=== PATIENT | female | born 1965 | race Asian ===

== ENCOUNTER 2024-10-22 22:20 | Emergency (ER) | payer OTHER, SELFPAY ==
[2024-10-22 22:22] VITALS: BP 142/90
--- NOTE | 2024-10-23 00:31 | ED.GENMED ---
History of Present Illness
<GILSON Montiel - Last Filed: 10/23/24 01:06>
General
Chief Complaint: Abdominal Pain
Source: patient and family
Time Seen by Provider: 10/23/24 00:08
Nursing documentation reviewed up to this point in time: agreed with
History of Present Illness
History of Present Illness:
Pt is a 59 yo F with a history of a cholecystectomy who presents to the ED via EMS with abdominal pain. Pt states that the pain began around 6pm and it is located in the epigastric region. Pt states that the pain is non-radiating and describes it as
a 'knot' and sharp. Pt states that the pain has been intermittent since onset. Pt states at home when EMS was called, the pain was the most severe it has been and 10/10 on the pain scale. Family states that the patient couldn't walk due to the pain.
Pt states that now she is feeling better. Pt denies N/V/D, fever, chills, headache, changes in urination.
In 2021 patient had an upper endoscopic US which found minimal inflammation of the common bile duct. Pt states that since then, she has not had any abdominal pain.
Past History
<GILSON Montiel - Last Filed: 10/23/24 01:06>
Past History
ED Past Medical History: None
Social History
Tobacco: Non-smoker
Review of Systems
<GILSON Montiel - Last Filed: 10/23/24 01:06>
Review of Systems
Allergies reviewed?: Yes
Constitutional: Reports no symptoms
Respiratory: Reports no symptoms
Cardiac: Reports no symptoms
ABD/GI: Reports abdominal pain
: Reports no symptoms
Neurological: Reports no symptoms
Phy Exam
<GILSON Montiel - Last Filed: 10/23/24 01:06>
General Physical Exam
General Presentation: well appearing and no apparent distress
General age: appears stated age
General Skin: warm
General Habitus: normal
General Mental: alert
General Hydration: appears well hydrated
Cardiovascular Exam
Cardiovascular Exam: regular rate/rhythm
Pulmonary Exam
Pulmonary Exam: lungs clear
Gastrointestinal Exam
Gastrointestinal Exam: normal bowel sounds, non tender and soft
Palpation: generalized: No tenderness (in epigastric region)
Course
<GILSON Montiel - Last Filed: 10/23/24 01:06>
Orders/Labs/Results
Orders:
Orders
10/22/24 22:25
Electrocardiogram (*1) Urgent
Reason for Study: Abdominal Pain
IV Insert/Care/Rem.- Treatment PRN
Complete Blood Count/With Diff Urgent
Comprehensive Metabolic Panel Urgent
Lipase Urgent
10/22/24 22:26
EKG- Treatment ONCE
10/23/24 00:35
Urinalysis Reflex To Culture Urgent
Date Specimen was Collected: 10/23/24
Time Specimen was Collected: 00:33
Urine Microscopic Reflex Cult Urgent
Urine Culture Urgent
EMORY Source: U
Specimen Description:
Date Specimen was Collected: 10/23/24
Time Specimen was Collected: 00:33
10/23/24 02:16
US Abdomen Complete/Upper Urgent
Comment:
Reason For Exam: acute upper abd pain, elevated LFT's.
Abnormal Lab Results
10/23/24 10/23/24
00:28 00:35
MPV 10.5 H fL
(7.4-10.4)
Glucose 111 H mg/dl
(70-99)
AST 90 H U/L
(14-36)
ALT 60 H U/L
(0-35)
Ur Occult Blood Reflex Trace A
(Negative)
Leukocyte Esterase Rfl 2+ A
(Negative)
Urine RBC 3-6 A /HPF
(0-2)
Urine Bacteria (Reflex) Moderate A
(Negative)
10/23/24 00:28
10/23/24 00:28
Vital Signs
Initial and Last Documented VS:
Initial Vital Signs
Temp Pulse Resp BP Pulse Ox
98.5 F 75 18 142/90 98
10/22/24 22:22 10/22/24 22:22 10/22/24 22:22 10/22/24 22:22 10/22/24 22:22
Last Documented Vital Signs
Temp Pulse Resp BP Pulse Ox
98.5 F 75 18 142/90 98
10/22/24 22:22 10/22/24 22:22 10/22/24 22:22 10/22/24 22:22 10/22/24 22:22
<Catherine Montiel, DO - Last Filed: 10/23/24 03:24>
Orders/Labs/Results
Orders:
Orders
10/22/24 22:25
Electrocardiogram (*1) Urgent
Reason for Study: Abdominal Pain
IV Insert/Care/Rem.- Treatment PRN
Complete Blood Count/With Diff Urgent
Comprehensive Metabolic Panel Urgent
Lipase Urgent
10/22/24 22:26
EKG- Treatment ONCE
10/23/24 00:35
Urinalysis Reflex To Culture Urgent
Date Specimen was Collected: 10/23/24
Time Specimen was Collected: 00:33
Urine Microscopic Reflex Cult Urgent
Urine Culture Urgent
EMORY Source: U
Specimen Description:
Date Specimen was Collected: 10/23/24
Time Specimen was Collected: 00:33
10/23/24 02:16
US Abdomen Complete/Upper Urgent
Comment:
Reason For Exam: acute upper abd pain, elevated LFT's.
Abnormal Lab Results
10/23/24 10/23/24
00:28 00:35
MPV 10.5 H fL
(7.4-10.4)
Glucose 111 H mg/dl
(70-99)
AST 90 H U/L
(14-36)
ALT 60 H U/L
(0-35)
Ur Occult Blood Reflex Trace A
(Negative)
Leukocyte Esterase Rfl 2+ A
(Negative)
Urine RBC 3-6 A /HPF
(0-2)
Urine Bacteria (Reflex) Moderate A
(Negative)
10/23/24 00:28
10/23/24 00:28
Vital Signs
Initial and Last Documented VS:
Initial Vital Signs
Temp Pulse Resp BP Pulse Ox
98.5 F 75 18 142/90 98
10/22/24 22:22 10/22/24 22:22 10/22/24 22:22 10/22/24 22:22 10/22/24 22:22
Last Documented Vital Signs
Temp Pulse Resp BP Pulse Ox
98.5 F 75 18 142/90 98
10/22/24 22:22 10/22/24 22:22 10/22/24 22:22 10/22/24 22:22 10/22/24 22:22
<GILSON Montiel - Last Filed: 10/23/24 01:06>
MDM/Problems Addressed
Differential Diagnosis Includes:
Acute pancreatitis, SBO, GERD
<GILSON Montiel - Last Filed: 10/23/24 01:06>
*Critical Care Note
Total Time (30-74mins, 75-104mins- exclusive of procedures): Not Applicable
<Catherine Montiel DO - Last Filed: 10/23/24 03:24>
*Radiology
Radiology exam reviewed: radiology read reviewed
*Pulse Oximetry
Patient hypoxic: no
*EKG
Interpreted by ED Provider?: Yes
Interpretation: normal
Comparison EKG: no changes (Unchanged from previous November 2021)
Rate: normal
Rhythm: sinus
[place]: normal axis
Interval: normal interval
QRS Pattern: normal QRS
Ischemia: no ischemia
ED Attending Note
<ST TianaPA - Last Filed: 10/23/24 01:06>
-
Portions of this chart may have been created with voice recognition software.� Occasional wrong word or��sound alike� substitutions may have occurred due to the inherent limitations of voice recognition software.
<Catherine Montiel DO - Last Filed: 10/23/24 03:24>
ED Attending Note
Patient seen and examined by attending physician: Yes
I performed the substantive portion of visit, reviewed & personally made and approve the management plan that is documented in note by myself or EVANGELISTA.: Yes
ED Attending Note:
This is a 59-year-old woman with history of cholecystectomy 9 years ago and was hospitalized here November 2021 after suffering an episode of acute cholangitis. At that time she presented with 4 to 5-day history of upper abdominal pain associated
with nausea, vomiting and brief diarrhea at onset of symptoms. She was found to have significantly elevated LFTs, mildly dilated common bile duct on ultrasound and MRCP showed mildly dilated proximal common bile duct but no definitive filling
defect, concerning for cholangitis. Treated with IV antibiotics, transition to oral antibiotics and followed up with GI as an outpatient with reported normalization of LFTs.
She has been feeling well since then without recurrent episodes but tonight shortly after dinner she developed abrupt onset of generalized upper abdominal pain, severe in nature causing her to double over. She did pass a bowel movement at home and
shortly after passing this bowel movement pain has improved and has since resolved. She has had no associated nausea nor vomiting. No chest pain, no back pain, no dizziness or lightheadedness.
Prior to tonight she has been feeling well.
GENERAL: 59-year-old woman appears her stated age, bright and alert, pleasant, appears in no acute distress. and daughter accompanying.
EYE: pupils equal and reactive. anicteric
NECK: Supple, nontender, no meningismus, no significant adenopathy.
ENT: posterior pharynx is clear, oral mucosa is moist. No rhinorrhea.
CARDIAC: Regular rate and rhythm. no murmur.
LUNGS: Clear breath sounds bilaterally, no acute respiratory distress, no wheezes/rales/rhonchi
ABDOMEN: Soft, nondistended, without focal tenderness, no r/g, no cvat. Mildly hyperactive bowel sounds.
NEUROLOGICAL: Alert and oriented x3, no focal neuro deficits. Gait is haider and steady.
SKIN: Warm and dry, normal color, skin intact. No rash.
MUSCULOSKELETAL: No C/C/E. peripheral pulses are full and equal b/l. No palpable tenderness.
PSYCH: Normal and appropriate interaction.
Concern for recurrent biliary colic/common bile duct stone, cholangitis, pancreatitis, gastritis, small bowel obstruction. ACS is considered but less likely.
Currently symptom-free and comfortable. Abdomen is soft without appreciable tenderness.
EKG is unremarkable, within normal limits, unchanged from previous November 2021.
Labs are pending.
Will continue to observe.
Will consider imaging depending on lab results and clinical course.
03:20
Labs show minimally elevated AST and ALT however similar to January 2022.
CBC is unremarkable. Urinalysis shows moderate bacteria, 6-10 WBCs. 3-5 squamous epithelial cells. Patient has had no UTI symptoms, no flank pain. She remains afebrile.
Abdominal ultrasound shows no acute findings. There is note of extrahepatic ductal dilatation with CBD measuring up to 11 mm but overall similar and unchanged from previous MRCP. No ductal stones visualized.
Patient remains comfortable, pain-free.
She has had no diarrhea nor recurrent bowel movement since arrival to the ED.
Tolerating oral fluids without difficulty.
At this point unclear as to cause for abdominal pain. She may have had an element of irritable bowel, spastic colon which improved after passing a bowel movement at home.
Will discharge to home with recommendations to maintain a bland diet over the next 24 hours.
As she has had no UTI symptoms, I suspect asymptomatic bacteriuria and will hold off on antibiotic, await urine culture.
Recommend prompt follow-up with PCP for recheck.
Discharge Plan
Departure
Patient Disposition: Home (Routine Discharge)
Date of Disposition: 10/23/24
Time of Disposition: 03:23
Patient with high blood pressure during this ER visit?: No
Condition: Good
Discharge Problem:
Acute upper abdominal pain
Instructions: Abdominal Pain
Prescriptions:
No Action
fluticasone propionate [Flovent HFA] 1 PUFF HFA aerosol inhaler
2 puff inhalation R BID Qty: 1 0RF
pantoprazole 40 MG tablet,delayed release (DR/EC)
40 mg PO DAILY Qty: 30 0RF
levofloxacin 750 MG tablet
750 mg PO DAILY 3 Days Qty: 3 0RF
metronidazole 500 MG tablet
500 mg PO Q8 3 Days Qty: 9 0RF
oxycodone 5 MG tablet
5 mg PO Q4HPRN PRN (Reason: pain) Qty: 5 0RF
meclizine 12.5 MG tablet
12.5 mg PO PRN (Reason: dizziness)
Referrals:
Eulalia Benjamin MD [Family Provider] - Call in 1-3 days for appt
Interventions
Interventions:
*Risk Screen - Suicide Last Done: 10/23/24 02:14
*General Assessment Last Done: 10/23/24 02:14
*Neglect/Abuse Screening Last Done: 10/23/24 02:14
ED- Fall Risk Assessment Last Done: 10/23/24 02:14
*ED COVID-19 Vaccine History Last Done: 10/22/24 22:25
WP-Npxflz-Ttyefqjozl Assessment Last Done: 10/23/24 02:14
Discharge Date and Time
Print Language: BARBADIAN
[2024-10-23 00:50] LABS: % Basophils 0.4 % (0-2); % Eosinophils 1.3 % (0-6); % Immature Granulocytes 0.2 % (0-0.5); % Lymphocytes 23.3 % (20.5-51.1); % Monocytes 5.6 % (1.7-9.3); % Neutrophils 69.2 % (42.2-75.2); Absolute Eosinophils 0.1 10^3/uL (0-0.7); Absolute Monocytes 0.5 10^3/uL (0.1-0.6); Absolute Neutrophils 5.9 10^3/uL (1.4-6.5); Hematocrit 38.6 % (37.0-47.0); Hemoglobin 12.9 g/dL (12.0-16.0); Mean Corp Hgb Conc. 33.4 g/dL (33.0-37.0); Mean Corpuscular Hgb 29.7 pg (27.0-31.0); Mean Corpuscular Volume 88.7 fL (81.0-99.0); Mean Platelet Volume 10.5 fL (7.4-10.4); Nucleated Red Blood Cells % 0 %; Platelet Count 302 10^3/uL (130-400); Red Blood Cell Count 4.35 10^6/uL (4.20-5.40); Red Cell Dist. Width 13.6 % (11.5-14.5); White Blood Cell Count 8.5 10^3/uL (4.8-10.8)
[2024-10-23 00:59] LABS: Urine Albumin Negative (Neg - Trace); Urine Bilirubin Negative (Negative); Urine Character Clear (Clear); Urine Color Yellow; Urine Glucose Negative (Negative); Urine Ketone Negative (Negative); Urine Leukocyte 2+ (Negative); Urine Nitrite Negative (Negative); Urine Occult Blood Trace (Negative); Urine Urobilinogen Negative (Neg - 1+); Urine pH 6.5 (5.0-9.0)
[2024-10-23 01:04] LABS: ALT (SGPT) 60 U/L (0-35); AST (SGOT) 90 U/L (14-36); Albumin 4.3 g/dl (3.5-5.0); Alkaline Phosphatase 85 U/L (38-126); Blood Urea Nitrogen 15 mg/dl (7-17); Calcium 8.8 mg/dl (8.4-10.2); Carbon Dioxide 27 mmol/L (22-30); Chloride 104 mmol/L (98-107); Glucose 111 mg/dl (70-99); Lipase 80 U/L (23-300); Potassium 4.5 mmol/L (3.5-5.1); Sodium 139 mmol/L (135-145); Total Bilirubin 0.3 mg/dl (0.2-1.3); Total Protein 7.2 g/dl (6.3-8.2); eGFR > 60.00
[2024-10-23 01:42] LABS: Urine Bacteria Moderate (Negative)
[2024-10-23 04:13] VITALS: BP 143/78
== END 2024-10-23 04:14 | disposition home or self-care (01) ==
LOC: EMR 22:20
PROVIDERS: Emergency Medicine; EMERGENCY PHYSICIAN Emergency Medicine; FAMILY PHYSICIAN Emergency Medicine
DX: R10.11 Right upper quadrant pain (principal)
CPT/HCPCS: 99284; 76700; 80053; 81003; 81015; 83690; 85025; 87086; 93005

== ENCOUNTER → 2024-12-26 15:25 | Outpatient (REF) | payer OTHER, SELFPAY ==
[2024-12-26 16:44] LABS: ALT (SGPT) 27 U/L (0-35); AST (SGOT) 29 U/L (14-36); Albumin 4.1 g/dl (3.5-5.0); Alkaline Phosphatase 72 U/L (38-126); Blood Urea Nitrogen 14 mg/dl (7-17); Carbon Dioxide 30 mmol/L (22-30); Chloride 102 mmol/L (98-107); Glucose 111 mg/dl (70-99); Potassium 4.1 mmol/L (3.5-5.1); Sodium 138 mmol/L (135-145); Total Bilirubin 0.4 mg/dl (0.2-1.3); Total Protein 7.2 g/dl (6.3-8.2); eGFR > 60.00
== END ==
LOC: REG 15:25
PROVIDERS: ATTENDING PHYSICIAN Family Medicine
DX: Z09 Encounter for follow-up examination after completed treatment for conditions other than malignant neoplasm (principal)
CPT/HCPCS: 36415; 80053

== ENCOUNTER → 2025-02-15 07:07 | Outpatient (REF) | payer OTHER, SELFPAY ==
[2025-02-15 10:18] LABS: Glycohemoglobin (HgbA1c) 5.9 % (4.0-5.6)
== END ==
LOC: REG 07:07
PROVIDERS: ATTENDING PHYSICIAN Emergency Medicine
DX: R73.9 Hyperglycemia, unspecified (principal)
CPT/HCPCS: 36415; 83036

== ENCOUNTER 2025-03-07 12:35 | Inpatient (IN) | payer OTHER, SELFPAY ==
[2025-03-07] VITALS (13 sets, daily range): BP systolic 90–148; BP diastolic 42–70; BMI 21.5
[2025-03-07] MEDS: TYLENOL 650 MG PO (10:18)
[2025-03-07] MEDS: ZOFRAN 4 MG IV (10:18)
[2025-03-07] MEDS: PROTONIX IV 40 MG IV (10:18)
--- NOTE | 2025-03-07 10:19 | ED.GENMED ---
History of Present Illness
General
Chief Complaint: Fever
Source: patient
Exam Limitations: none
Time Seen by Provider: 03/07/25 09:40
Nursing documentation reviewed up to this point in time: agreed with
History of Present Illness
History of Present Illness:
Patient with history of cholecystectomy 20 years ago, presents to ED secondary to sudden onset of upper abdominal pain, shortly after having dinner, consisting of steamed fish along with vegetables. Abdominal pain described as sharp, with radiation
to the back, without any alleviating or exacerbate factors. Denies fever or chills. Denies diarrhea. Denies trauma. Denies recent illness. Denies recent change in medications or diet. Denies sick contact. Patient states that she had similar
symptoms when she had her gallbladder removed.
Past History
Past History
ED Past Medical History: None
Social History
Tobacco: Non-smoker
Review of Systems
Review of Systems
Allergies reviewed?: Yes
All Other Systems: ROS reviewed and negative except as documented in HPI and ROS
Constitutional: Reports no symptoms
Respiratory: Reports no symptoms
Cardiac: Reports no symptoms
ABD/GI: Reports abdominal pain, nausea and vomiting; Denies diarrhea
Musculoskeletal: Reports no symptoms
Skin: Reports no symptoms
Neurological: Reports no symptoms
Phy Exam
Physical Exam
Physical Exam:
Physical Exam
General: mild painful distress, acutely ill. febrile.
Head: nc/at. eomi
Neck: supple. normal range of motion.
Heart: tachycardic. no murmuc
Lungs: no acute respiratory distress.
Abdomen: normal bowel sounds. moderate RUQ tenderness to palpation. no distention
Neuro: alert and oriented x 3. no focal neurological deficits
Skin: no rash
Psychiatric: well kept. interactive and cooperative
Extremities: no edema. no calf tenderness.
Sepsis
Sepsis Screening
Sepsis Assessment: Sepsis
Sepsis Screen
Sepsis Screen: Sepsis
Date: 03/08/25
Time: 12:15
Course
Orders/Labs/Results
Orders:
Orders
03/07/25 Breakfast
NPO
Allow oral meds: Yes
Allow clear liquids: No
03/07/25 10:07
HYDROmorphone [Dilaudid] 0.5 mg IV NOW STA
Ondansetron Injectable [Zofran] 4 mg IV NOW STA
Pantoprazole [Protonix IV] 40 mg IV NOW STA
03/07/25 10:08
0.9% Sodium Chloride 500 ml [Nss] 500 ml IV BOLUS
Acetaminophen [Tylenol] 650 mg PO NOW STA
US Abdomen Complete/Upper Urgent
Comment:
Reason For Exam: RUQ/epigastric pain
03/07/25 10:14
COVID-19 Antigen Urgent
Source: Nasal Swab
Complete Blood Count/With Diff Urgent
Comprehensive Metabolic Panel Urgent
Direct Bilirubin Urgent
Comment: ADD ON
Hepatitis C Antibody Routine
Comment: ADD ON
Lactic Acid Q4H
Comment: CANCEL 2nd LACTIC ACID IF 1st LACTIC ACID IS LESS THAN 2
Lipase Urgent
Magnesium Urgent
Influenza A+B Rapid Molecular Urgent
EMORY Source: Nasal Swab
Specimen Description:
03/07/25 11:19
Urinalysis Reflex To Culture Urgent
Date Specimen was Collected: 03/07/25
Time Specimen was Collected: 10:13
Urine Microscopic Reflex Cult Urgent
03/07/25 11:33
Piperacillin/Tazo 3.375 Gram [Zosyn] 3.375 gram in 50 ml IV NOW
03/07/25 11:47
Blood Culture Q30M
EMORY Source: Blood/Venous
Specimen Description:
Blood Culture Q30M
EMORY Source: Blood/Venous
Specimen Description:
03/07/25 12:01
MR Abdomen W/o & W Contrast Urgent
Comment: Please include MRCP images
Reason For Exam: abd pain with abnormal LFTs
Recent pill cam endoscopy?: No
03/07/25 12:22
Admit/Transfer Patient As Directed
Co-Sign Provider:
Level of Care: Inpatient admission
Assign to:: Telemetry
Physician / Group: jean paul
Diagnosis: choledocholithiasis
Reason for Telemetry: Other
Other Reason for Telemetry: sepsis
Date to Stop Telemetry: 03/09/25
Time to Stop Telemetry: 11:00
Reason for Hospitalization: sepsis
Expected length of stay greater than two midnights?: Yes
ELOS- Estimated Length of Stay in days: 3
I certify the patient meets the requirements for IP care: Yes
03/07/25 12:23
PRN Pain Medication Management As Directed
May give lesser potent ordered pain med per pt: Yes
preference::
Protocol:: Medication orders for pain may be administered in a
manner that supports deferring to patient preference
when the pt is:
- Requesting an ordered lesser potent pain medication.
Least to most potent pain medications are defined
as: acetaminophen < NSAID < tramadol < opioids
(morphine, oxycodone, hydromorphone).
- Requesting a lesser dose of the same medication IF
ORDERED.
- Requesting a less intrusive route of administration
if both routes are prescribed by the provider (PO <
IV).
03/07/25 12:24
Code Status As Directed
Resuscitation Status: Full Code
03/07/25 13:48
0.9% Sodium Chloride 1000 ml [Nss] 1,000 ml IV 125 mls/hr
Bisacodyl [Dulcolax] 10 mg RECTAL [id number] PRN
Docusate W/Senna [Senokot-S] 1 tablet PO BIDPRN PRN
Ibuprofen [Motrin] 400 mg PO Q6HPRN PRN
Polyethylene Glycol Powder [Miralax] 17 grams PO DAILYPRN PRN
03/07/25 13:48
GASTROINTESTINAL CONSULT Routine
Consulting Provider: Nikos Ortiz
Was physician already notified: Yes
Activity As Directed
Activity Level: As Tolerated
Vital Signs As Directed
Frequency: Per unit guidelines
DX Deep Vein Thrombosis Video Routine
03/07/25 14:30
HYDROmorphone [Dilaudid] 0.5 mg IV Q4HPRN PRN
03/07/25 16:30
Ondansetron Injectable [Zofran] 4 mg IV Q6HPRN PRN
03/07/25 18:00
Enoxaparin Sodium [Lovenox] 40 mg SC QPM
Piperacillin/Tazo 3.375 Gram [Zosyn] 3.375 gram in 50 ml IV Q6H
03/08/25 05:37
Complete Blood Count/No Diff IN AM
LFT [Nfyjy-Klei-Gcogvdj] IN AM
03/08/25 08:00
Pantoprazole [Protonix] 40 mg PO DAILY
03/09/25 06:00
Complete Blood Count/No Diff IN AM
LFT [Avpcd-Zqyt-Mxejgtc] IN AM
03/09/25 11:00
DC Protocol for Telemetry ONCE
03/10/25 06:00
Complete Blood Count/No Diff IN AM
LFT [Szjih-Nemf-Cfhswhb] IN AM
Abnormal Lab Results
03/07/25 03/07/25
10:14 11:19
WBC 15.6 H 10^3/uL
(4.8-10.8)
MPV 10.6 H fL
(7.4-10.4)
Abs Immat Gran (auto) 0.1 H 10^3/uL
(0-0.05)
Absolute Neuts (auto) 14.6 H 10^3/uL
(1.4-6.5)
Absolute Lymphs (auto) 0.4 L 10^3/uL
(1.2-3.4)
Neutrophils % 93.5 H %
(42.2-75.2)
Lymphocytes % 2.6 L %
(20.5-51.1)
Glucose 131 H mg/dl
(70-99)
Total Bilirubin 2.6 H mg/dl
(0.2-1.3)
Direct Bilirubin 1.7 H mg/dl
(0.0-0.4)
AST 1007 H* U/L
(14-36)
ALT 602 H* U/L
(0-35)
Urine Ketones 1+ A
(Negative)
Ur Occult Blood Reflex 2+ A
(Negative)
Urine RBC 7-10 A /HPF
(0-2)
Urine Bacteria (Reflex) Few A
(Negative)
Urine Albumin (Reflex) 1+ A
(Neg - Trace)
03/07/25 10:14
03/07/25 10:14
Vital Signs
Initial and Last Documented VS:
Initial Vital Signs
Temp Pulse Resp BP Pulse Ox
101.2 F H 118 18 148/70 95
03/07/25 07:33 03/07/25 07:33 03/07/25 07:33 03/07/25 07:33 03/07/25 07:33
Last Documented Vital Signs
Temp Pulse Resp BP Pulse Ox
98.2 F 71 18 117/51 99
03/08/25 11:32 03/08/25 11:32 03/08/25 11:32 03/08/25 11:32 03/08/25 11:32
MDM/Problems Addressed
MDM/Problems Addressed:
History and exam concerning for choledocholithiasis vs cholangitis. Will admit for further evaluation and treatment, including abx and MRCP.
director call center sales GI physician, Dr. Ortiz, notified via [employer]
*Critical Care Note
Total Time (30-74mins, 75-104mins- exclusive of procedures): Not Applicable
ED Attending Note
-
Portions of this chart may have been created with voice recognition software.� Occasional wrong word or��sound alike� substitutions may have occurred due to the inherent limitations of voice recognition software.
Discharge Plan
Departure
Patient Disposition: Admit
Date of Disposition: 03/07/25
Time of Disposition: 11:44
Admit to: Telemetry
Presentation/result/management discussed w/ accepting MD/DO: Hospitalist
Discharge Problem:
Fever, Abdominal pain
Interventions
Interventions:
*Risk Screen - Suicide Last Done: 03/07/25 07:33
*General Assessment Last Done: 03/07/25 07:33
*Neglect/Abuse Screening Last Done: 03/07/25 10:26
*ED- Fall Risk Assessment Last Done: 03/07/25 10:26
*ED COVID-19 Vaccine History Last Done: 03/07/25 07:33
*Nursing Disposition Last Done: 03/07/25 13:20
ED- Neurological Assessment Last Done: 03/07/25 10:26
ED-Skin Assessment Last Done: 03/07/25 10:26
Discharge Date and Time
Discharge Date/Time: 03/07/25 13:36
[2025-03-07] MEDS: DILAUDID 0.5 MG IV (10:20)
[2025-03-07] MEDS: NSS 500 IV (10:22)
[2025-03-07 10:29] LABS: Hematocrit 40.2 % (37.0-47.0); Mean Corp Hgb Conc. 34.8 g/dL (33.0-37.0); Mean Corpuscular Hgb 30.3 pg (27.0-31.0); Mean Platelet Volume 10.6 fL (7.4-10.4); Platelet Count 245 10^3/uL (130-400); Red Blood Cell Count 4.62 10^6/uL (4.20-5.40); Red Cell Dist. Width 13.6 % (11.5-14.5); White Blood Cell Count 15.6 10^3/uL (4.8-10.8)
[2025-03-07 10:36] LABS: Lactic Acid 1.6 mmol/L (0.7-2.0)
[2025-03-07 10:46] LABS: ALT (SGPT) 602 U/L (0-35); Albumin 4.3 g/dl (3.5-5.0); Alkaline Phosphatase 112 U/L (38-126); Blood Urea Nitrogen 10 mg/dl (7-17); COVID-19 Antigen Negative (Negative); Calcium 9.3 mg/dl (8.4-10.2); Carbon Dioxide 26 mmol/L (22-30); Chloride 104 mmol/L (98-107); Estimated Creatinine Clearance 60 ml/min; Glucose 131 mg/dl (70-99); Lipase 76 U/L (23-300); Magnesium 1.6 mg/dl (1.6-2.3); Potassium 3.8 mmol/L (3.5-5.1); Sodium 138 mmol/L (135-145); Total Bilirubin 2.6 mg/dl (0.2-1.3); Total Protein 7.6 g/dl (6.3-8.2); eGFR > 60.00
[2025-03-07 11:03] LABS: AST (SGOT) 1007 U/L (14-36)
[2025-03-07 11:17] LABS: % Basophils 0.3 % (0-2); % Immature Granulocytes 0.5 % (0-0.5); % Lymphocytes 2.6 % (20.5-51.1); % Monocytes 3.1 % (1.7-9.3); % Neutrophils 93.5 % (42.2-75.2); Absolute Immature Granulocytes 0.1 10^3/uL (0-0.05); Absolute Lymphocytes 0.4 10^3/uL (1.2-3.4); Absolute Monocytes 0.5 10^3/uL (0.1-0.6); Absolute Neutrophils 14.6 10^3/uL (1.4-6.5); Nucleated Red Blood Cells % 0 %
[2025-03-07] MEDS: ZOSYN 50 IV ×3 (11:49→23:56)
--- NOTE | 2025-03-07 12:08 | HPS.HSE ---
Family Physician
-
Family Physician: Eulalia Benjamin MD
Chief Complaint
-
abdominal pain
History of Present Illness
Patient with history of cholecystectomy 20 years ago, GERD presents to ED secondary to sudden onset of upper abdominal pain, shortly after having dinner, consisting of steamed fish along with vegetables. Abdominal pain described as sharp, with
radiation to the right sided back. patient had multiple episodes of vomiting since last night.denied fever, chills,chest pain, sob. stated AUGUST and dizzy.denied syncope. denied dysuria or hematuria.
concern for choledocholithiasis vs cholangitis. patient received fluids, Zosyn, fluids, Dilaudid, Tylenol and Zofran and Protonix in Er. admitting for further management.
Medical History
Past Medical History
Past Medical History: Reports Other
Additional Past Medical History:
vertigo
right middle lobe nodule
GERD
Past Surgical History: Reports Other
Additional Past Surgical History:
cholecystectomy
Social History
Tobacco: Non-smoker
Alcohol: None
Drug: None
Personal:
Living: With Family
Family History
Family History: Not pertinent
Allergies / Home Medications
Allergies reflects when Allergies were last updated in [employer].
Home Medications with original date entered in [employer]
Allergy/Medication List:
Allergies
Allergy/AdvReac Type Severity Reaction Status Date / Time
sunlight Allergy Hives Uncoded 03/07/25 07:37
Home Medications
meclizine 12.5 mg tablet 12.5 mg PO DAILYPRN PRN dizziness 11/24/21
Flovent Hfa 2 puff inhalation R BIDPRN PRN sob 03/07/25
acetaminophen 325 mg tablet (Tylenol) 650 mg PO Q6HPRN PRN mild pain 03/07/25
pantoprazole 40 mg tablet,delayed release 40 mg PO DAILY 03/07/25
Review of Systems
-
Constitutional: Reports No Symptoms
EENT: Reports No Symptoms
Respiratory: Reports No Symptoms
Cardiac: Reports No Symptoms
Abdomen/GI: Reports Abdominal Pain, Nausea and Vomiting
: Reports No Symptoms
Musculoskeletal: Reports No Symptoms
Skin: Reports No Symptoms
Neurological: Reports Dizzy and Headache
Endocrine: Reports No Symptoms
Hematologic/Lymphatic: Reports No Symptoms
Psych: Reports No Symptoms
Physical Exam
Vital Signs
Vital Signs
Temp Pulse Resp BP Pulse Ox
99.4 F 101 21 143/69 97
03/07/25 11:21 03/07/25 11:30 03/07/25 11:30 03/07/25 11:18 03/07/25 11:30
Physical Exam
General: Well Developed, Well Nourished and No Apparent Distress
HEENT: NormoCephalic, Moist mucous membranes and Atraumatic
Respiratory: Clear
Cardiac: S1/S2 and Regular Rhythm; No Murmur or Rub
GI: Soft, Non Distended, Normal Bowel Sounds and Tender; No Organomegaly
Rectal: Deferred by Provider
Musculoskeletal: No Clubbing, No Cyanosis and No Edema
Skin: No Rash
Neuro: AO x 3 and Nonfocal/grossly intact
Psych: Calm
Laboratory Results
-
03/07/25 10:14
03/07/25 10:14
Laboratory Results
Lactic Acid Cancelled 03/07/25 14:15
Total Bilirubin 2.6 mg/dl (0.2-1.3) H 03/07/25 10:14
AST 1007 U/L (14-36) H* 03/07/25 10:14
ALT 602 U/L (0-35) H* 03/07/25 10:14
Alkaline Phosphatase 112 U/L (38-126) 03/07/25 10:14
Lipase 76 U/L (23-300) 03/07/25 10:14
Data Reviewed
-
Ultrasound: Report Reviewed by me
Lab Data: Labs Reviewed by me
Impression/Plan
-
#fever/right upper quadrant pain/elevated LFTS
#sepsis as evident by tachycardia, fever and elevated wbcs.
-MRCP
-GI consulted
-keep patient NPO
-fluids continued for hydration
-iv zosyn continued
-wbc 15.6,AT 1001, ALT 602
-US of abdomen with the impression of Mildly prominent common bile duct although smaller in caliber in comparison to prior ultrasound. No findings to suggest intrahepatic biliary tract dilatation.
-blood culture sent from ER
-COVID and flu negative
#DVT prophylaxis
-Lovenox
#CODE status
-full code
[2025-03-07 12:14] LABS: Urine Albumin 1+ (Neg - Trace); Urine Bilirubin Negative (Negative); Urine Character Clear (Clear); Urine Color Yellow; Urine Glucose Negative (Negative); Urine Ketone 1+ (Negative); Urine Leukocyte Negative (Negative); Urine Nitrite Negative (Negative); Urine Occult Blood 2+ (Negative); Urine Urobilinogen Negative (Neg - 1+)
[2025-03-07 12:31] LABS: Urine Bacteria Few (Negative); Urine White Cell 0-2 /HPF (0-5)
--- NOTE | 2025-03-07 12:44 | CON.GI ---
Addendum entered and electronically signed by Nikos Ortiz MD 03/07/25 16:49:
I saw and examined the patient.
The LABORER YARD or PA's note was reviewed and I agree with the note.
Comment:
This patient is a 60-year-old woman with a history of a cholecystectomy 10 years ago. She started having episodes of abdominal pain dating back to 2021. She has had imaging and procedures showing beading of her intrahepatic bile ducts and
narrowing of her common bile duct. At the time was thought to be related to possible COVID cholangiopathy. She did have imaging to follow that up at the time. Since then she was relatively stable until October 2024 when she had abdominal pain
again she did have an ultrasound and was told to get a MRI which was scheduled for April. She did come to the hospital with fever and abdominal pain. She does have mildly elevated transaminases and an elevated white count.
abd: soft, mildly tender
impression:
abnormal biliary tract
possible cholangitis
abnl lfts
plan:
antibiotics
npo
MRI/MRCP
will likely need eus +/- ercp
trend lfts and wbc
blood cultures
Original Note:
Consultation
-
Date/Time Consultation Requested: 1200 03/07/25
Date/Time Consultation Performed: 1245 03/07/25
Requesting Provider: Yifan Mcfarlane MD
Performing Provider: MAGGIE English, Nikos Ortiz MD
Reason for Consultation: increased LFT's
Medical History
Chief Complaint / HPI
History of Present Illness:
Pt is a 60yo with hx prior bárbara 10 years ago at [facility], migraines with hx prior bouts of abdominal pain. She related first episode was in 2021. She was seen at and had recent COVID. On admission noted with increased LFT's US with mild duct
dilation and MRI with Moderate diffuse intrahepatic bile duct dilation.but questionable slight beading of the intrahepatic bile ducts and Focal narrowing of the common bile duct as it extends inferiorly within the pancreas, with suggestion of 2
focal areas of narrowing. The regions of narrowing appear to be due to wall thickening and/or extrinsic compression rather than due to a calculus. No convincing evidence for an associated mass lesion/neoplasm. Findings are felt to most likely be due
to cholangitis with resultant bile duct narrowing and dilation. With recent diagnosis of COVID-19, COVID-19 cholangiopathy is a consideration. There is no convincing evidence for a mass associated with this region of bile duct narrowing. However, a
primary bile duct carcinoma must be considered as a differential consideration. She proceed for EUS with irregularity and inflamed CBD - with concern for covid, vs passed stone vs early neoplasm. She completed repeat MRI several months later with
persistent intra and extrahepatic biliary ductal dilatation, with slight improvement. The common hepatic and proximal intrahepatic ducts remain mildly dilated, the proximal common bile duct measures 8 mm, previously measured 12 mm.There is a
persistent change in caliber similar to the previous exam, with a more normal caliber distal common bile duct measuring 4 mm and tapering normally. A discrete lesion within the duct or extrinsic lesion is not definitively identified. No other
significant interval change.The fact that there is improvement in the dilatation of the common bile duct suggests that the findings were most likely due to cholangitis, with improving symptoms and appearance of the bile ducts compared to the
previous exam. Pt was recommended to repeat MRI in 6 months to evaluate for stability but not completed. She then returned in 10/2024 with recurrent pain and similar ductal dilation and minimal LFT elevation with AST 90, ALT 60 and normal
lipase. She now returns for again recurrent abdominal pain with fever. On admission bili 2.6, AST 1007, ALT 602, and alk phos 112 with lipase 76, WBC 15,600 and fever 101.2 on admission.
At this time pt admits to episode usually occurring after eating. She admits to nausea and vomiting non bloody emesis and severe pain with episodes. She otherwise denies dysphagia, GERD, diarrhea, constipation, or change in stool or urine
color. No NSAID or Anticoagulation use.
Past Medical History
Past Medical History: Other (headaches, RML nodule )
Past Surgical History: Cholecystectomy
Social History
Tobacco: Non-Smoker
Alcohol: None
Drug: None
Personal:
Living: With Family
Employment: Employed
Family History
Family History: Other (no family hx GI malignancies )
Allergies / Home Medications
Allergy/AdvReac Type Severity Reaction Status Date / Time
sunlight Allergy Hives Uncoded 03/07/25 07:37
�Medication �Instructions �Recorded
meclizine 12.5 mg tablet 12.5 mg PO DAILYPRN PRN dizziness 11/24/21
Flovent Hfa 2 puff inhalation R BIDPRN PRN sob 03/07/25
acetaminophen 325 mg tablet 650 mg PO Q6HPRN PRN mild pain 03/07/25
(Tylenol)
pantoprazole 40 mg tablet,delayed 40 mg PO DAILY 03/07/25
release
Review of Systems
-
History Source: Patient and Family
Constitutional: Reports Fever
EENT: Reports No Symptoms
Respiratory: Reports No Symptoms
Cardiac: Reports No Symptoms
Abdomen/GI: Reports Abdominal Pain, Nausea and Vomiting
: Reports No Symptoms
Musculoskeletal: Reports No Symptoms
Skin: Reports No Symptoms
Neurological: Reports Dizzy and Weakness
Endocrine: Reports No Symptoms
Hematologic/Lymphatic: Reports No Symptoms
Vital Signs
Temp Pulse Resp BP Pulse Ox
99.4 F 101 21 143/69 97
03/07/25 11:21 03/07/25 11:30 03/07/25 11:30 03/07/25 11:18 03/07/25 11:30
Physical Exam
Exam
General: Well Developed, Well Nourished and Other (sedated in ER)
HEENT: Normocephalic and Other (? minimal jaundice )
Respiratory: Clear
Cardiac: Other (tachy )
GI: Soft, Non Distended and Tender (mild epigastric pain)
Musculoskeletal: No Clubbing and No Cyanosis
Skin: Warm and Dry
Neuro: Other (sleepy with sedation but answers some questions )
Psych: Calm
Results
WBC 15.6 10^3/uL (4.8-10.8) H 03/07/25 10:14
Hgb 14.0 g/dL (12.0-16.0) 03/07/25 10:14
Hct 40.2 % (37.0-47.0) 03/07/25 10:14
MCV 87.0 fL (81.0-99.0) 03/07/25 10:14
Plt Count 245 10^3/uL (130-400) 03/07/25 10:14
Absolute Neuts (auto) 14.6 10^3/uL (1.4-6.5) H 03/07/25 10:14
Sodium 138 mmol/L (135-145) 03/07/25 10:14
Potassium 3.8 mmol/L (3.5-5.1) 03/07/25 10:14
Chloride 104 mmol/L (98-107) 03/07/25 10:14
Carbon Dioxide 26 mmol/L (22-30) 03/07/25 10:14
BUN 10 mg/dl (7-17) 03/07/25 10:14
Creatinine 0.7 mg/dL (0.6-1.0) 03/07/25 10:14
Calcium 9.3 mg/dl (8.4-10.2) 03/07/25 10:14
Total Bilirubin 2.6 mg/dl (0.2-1.3) H 03/07/25 10:14
AST 1007 U/L (14-36) H* 03/07/25 10:14
ALT 602 U/L (0-35) H* 03/07/25 10:14
Alkaline Phosphatase 112 U/L (38-126) 03/07/25 10:14
Lipase 76 U/L (23-300) 03/07/25 10:14
Diagnostic Image Results:
11/2021 US Abdomen Complete/Upper
Mild dilation of the extrahepatic bile ducts, which is commonly seen status post cholecystectomy. Correlation with laboratory values is recommended. An MRCP could be performed if there is clinical concern for choledocholithiasis.
11/19/21 MR Abdomen W/o & W Contrast
IMPRESSION: Status post cholecystectomy.
Moderate diffuse intrahepatic bile duct dilation. MRCP images somewhat limited by motion, but questionable slight beading of the intrahepatic bile ducts.
Focal narrowing of the common bile duct as it extends inferiorly within the pancreas, with suggestion of 2 focal areas of narrowing. The regions of narrowing appear to be due to wall thickening and/or extrinsic compression rather than due to a
calculus. No convincing evidence for an associated mass lesion/neoplasm.
Findings are felt to most likely be due to cholangitis with resultant bile duct narrowing and dilation. With recent diagnosis of COVID-19, COVID-19 cholangiopathy is a consideration. There is no convincing evidence for a mass associated with this
region of bile duct narrowing. However, a primary bile duct carcinoma must be considered as a differential consideration.
No convincing evidence for common bile duct calculus.
Small cyst within the anterior left lobe of the liver.
02/23/22 MR Abdomen W/o & W Contrast
There is persistent intra and extrahepatic biliary ductal dilatation, with slight improvement. The common hepatic and proximal intrahepatic ducts remain mildly dilated, the proximal common bile duct measures 8 mm, previously measured 12 mm.
There is a persistent change in caliber similar to the previous exam, with a more normal caliber distal common bile duct measuring 4 mm and tapering normally. A discrete lesion within the duct or extrinsic lesion is not definitively identified.
No other significant interval change.
The fact that there is improvement in the dilatation of the common bile duct suggests that the findings were most likely due to cholangitis, with improving symptoms and appearance of the bile ducts compared to the previous exam.
Consider repeat MRI of the abdomen in 6-9 months to evaluate for stability.
10/2024 US abdomen
1. Mild diffusely increased echogenicity throughout the liver suggesting mild diffuse liver disease.
2. Extrahepatic biliary dilatation (common bile duct 1.2 cm diameter) which appears unchanged.
3. Previous cholecystectomy.
03/07/25 US abdomen
IMPRESSION: Prior cholecystectomy.
Mildly prominent common bile duct although smaller in caliber in comparison to prior ultrasound. No findings to suggest intrahepatic biliary tract dilatation.
Otherwise, unremarkable abdominal ultrasound.
Prior GI Procedures:
EUS 11/2021 abnormal MRI [place]
Impression: - Irregularity and minimally inflamed CBD [place]
corresponding to the MRI of unclear etiology. DDX is
resolving mild CBD inflammation due to COVID19 vs
passed calculus vs. early neoplasm
reccommended repeat MRI
EGD: none per chart
Colonoscopy: none per chart
Assessment / Plan
-
Pt is a 60yo with hx prior bárbara 10 years ago at [facility], migraines with hx prior bouts of abdominal pain. She related first episode was in 2021. She was seen at and had recent COVID. On admission noted with increased LFT's US with mild duct
dilation and MRI with Moderate diffuse intrahepatic bile duct dilation.but questionable slight beading of the intrahepatic bile ducts and Focal narrowing of the common bile duct as it extends inferiorly within the pancreas, with suggestion of 2
focal areas of narrowing. She proceed for EUS with irregularity and inflamed CBD - with concern for covid, vs passed stone vs early neoplasm. She completed repeat MRI several months later with persistent intra and extrahepatic biliary ductal
dilatation, with slight improvement. The common hepatic and proximal intrahepatic ducts remain mildly dilated, the proximal common bile duct measures 8 mm, previously measured 12 mm.There is a persistent change in caliber similar to the previous
exam, with a more normal caliber distal common bile duct measuring 4 mm and tapering normally. A discrete lesion within the duct or extrinsic lesion is not definitively identified. No other significant interval change.The fact that there is
improvement in the dilatation of the common bile duct suggests that the findings were most likely due to cholangitis, with improving symptoms and appearance of the bile ducts compared to the previous exam. Pt was recommended to repeat MRI in 6
months to evaluate for stability but not completed. She then returned in 10/2024 with recurrent pain and similar ductal dilation and minimal LFT elevation with AST 90, ALT 60 and normal lipase. She now returns for again recurrent abdominal pain
with fever. On admission bili 2.6, AST 1007, ALT 602, and alk phos 112 with lipase 76, WBC 15,600 and fever 101.2 on admission.
-recurrent bouts of abdominal pain with rise in LFT's
-fever/leukocytosis concern for sepsis with tachycardia and mild hypotension on admission
-prior abnormal MRI with slight beading of the intrahepatic bile ducts and Focal narrowing of the common bile duct with follow up EUS completed in 2021-- covid vs passed stone vs early mass vs other
-hx prior bárbara
-dizziness
other med problems:
-migraines
-hx lung nodule
PLAN:
etiology of symptoms with concern for cholangitis- CBD stone vs stricture with prior beaded CBD vs mass vs other
plan for MRI with MRCP
trend labs
NPO
abx
blood cx pending
family updated
-
-
Thank you for consultation and allowing me to participate in the patient's care. Please call the software configuration analyst GI physician during the after hours with any questions or concerns.
--- NOTE | 2025-03-07 12:44 | W.PN.UPDATE ---
Update Note
Progress Note Update
This is an addendum to the H&P written by Suzi Haynes on 03/07/2025.� Patient seen and examined independently with IMAGE CONSULTANT.
60-year-old female past medical history of cholecystectomy 20 years ago, presenting with upper abdominal pain with radiation to the back with vomiting.� No fevers or chills.�
Vital signs normal apart from tachycardia.
Labs show leukocytosis and elevated LFTs with AST of thousand, ALT of 600.� Abdominal ultrasound shows mildly prominent common bile duct although smaller than prior ultrasound.� No intrahepatic biliary tract dilatation.� Lipase 76.
Patient with likely acute choledocholithiasis.� NPO, IV fluids, Zosyn, MRCP, GI consulted.
[2025-03-07] MEDS: NSS 1000 IV (14:09)
[2025-03-07 17:29] LABS: Direct Bilirubin 1.7 mg/dl (0.0-0.4)
[2025-03-07] MEDS: LOVENOX 40 MG SC (17:41)
[2025-03-07 19:24] LABS: Hepatitis C Antibody Negative (Negative)
[2025-03-07] MEDS: MOTRIN 400 MG PO (20:47)
[2025-03-07] MEDS: NSS 250 IV ×2 (23:20→23:56)
[2025-03-08] VITALS (9 sets, daily range): BP systolic 91–146; BP diastolic 41–73
[2025-03-08] MEDS: ProAmatine 5 MG PO (00:50)
--- NOTE | 2025-03-08 01:07 | PTCARENOTE ---
Addendum entered by Lennie Gtz RN 03/08/25 02:09:
@ 0150 SBP remained in the 90s. provider notified. no new orders at this time.
Original Note:
Late note due to patient care- Please see EMR for specific values and times:
@ 2300 pt was found to have a low Bp (90s/40s)Pt denied c/o dizziness or pain. Assessment unchanged from beginning of shift. Provider was made aware. Order for increase in cont IVF and 250 bolus was placed and completed.
@2345 after completion of bolus, SBP remained in the 90s. VS include a rectal temp which was afeb. Provider notified. 250 ml bolus ordered and completed.
@0030 after completion of bolus, SBP remained in the 90s. Provider notified. Order for PO midodrine placed and completed.
[2025-03-08] MEDS: NSS 1000 IV ×3 (02:52→17:24)
[2025-03-08] MEDS: ZOSYN 50 IV ×3 (06:02→17:22)
[2025-03-08 06:28] LABS: Hematocrit 33.9 % (37.0-47.0); Hemoglobin 11.7 g/dL (12.0-16.0); Mean Corp Hgb Conc. 34.5 g/dL (33.0-37.0); Mean Corpuscular Volume 89.7 fL (81.0-99.0); Mean Platelet Volume 11.6 fL (7.4-10.4); Platelet Count 207 10^3/uL (130-400); Red Blood Cell Count 3.78 10^6/uL (4.20-5.40); Red Cell Dist. Width 14.3 % (11.5-14.5); White Blood Cell Count 13.2 10^3/uL (4.8-10.8)
[2025-03-08 06:35] LABS: INR 1.32; PT 16.9 Sec (11.4-14.6)
[2025-03-08 06:58] LABS: ALT (SGPT) 417 U/L (0-35); AST (SGOT) 347 U/L (14-36); Albumin 3.3 g/dl (3.5-5.0); Alkaline Phosphatase 102 U/L (38-126); Direct Bilirubin 2.2 mg/dl (0.0-0.4); Total Bilirubin 2.8 mg/dl (0.2-1.3)
[2025-03-08] MEDS: PROTONIX 40 MG PO (08:40)
--- NOTE | 2025-03-08 11:45 | CM ---
Spoke with patient's spouse to obtain information for assessment as patient was asleep. Patient's spouse stated that patient lives with her and their daughter in a duplex with a flight of steps to enter. Patient has been independent with ADLs,
personal care, dressing and bathing. 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 She drives and can get herself to all of her appointments and does all of her own shopping. She has no DME. She has never had VN or been to a SNF.
Patient has a prescription plan and uses, [facility] in [place] for all of her medications.
Her PCP is, Eulalia Benjamin.
Patient's spouse stated that patient should be able to return home when medically cleared for discharge.
Case management will continue to follow and assist with discharge planning. Will watch for any needs.
--- NOTE | 2025-03-08 15:21 | W.PN.GI.CBS2 ---
Addendum entered and electronically signed by Bette Harris DO 03/08/25 17:34:
Patient seen and examined independently of MAGGIE. I agree with her note with my additions below
Nichelle is a 60-year-old female with history of cholecystectomy over a decade ago, intermittent migraines comes in with recurrent epigastric abdominal pain that radiates into her back with hepatocellular injury, elevated total bilirubin of 2.8
with normal alkaline phosphatase and normal lipase. She has had 2 episodes in 2024 and prior to that 2 in 2021. She states symptoms start with bloating then escalate to pressure that is constant and severe in the epigastric area that radiates into
the back along with nausea menstrual having vomiting last night with chills and a measured fever this morning of 101.2. Blood cultures were sent and are negative. Initially ultrasound was done showing mildly prominent common bile duct but no
intrahepatic ductal dilatation. This was followed by MRI showing mild prominence of the proximal and mid common bile duct with thickening of the distal common bile duct measuring 9.4 cm with some mild enhancement. Gallbladder is absent, pancreas
is unremarkable with a normal pancreatic duct and a normal spleen.
Currently patient denies any significant nausea vomiting or pain and is hungry and wants to eat. She denies any family history of liver disease, no known autoimmune disease and only takes biotin outpatient. Recently told she was prediabetic.She is
a non-smoker and does not drink alcohol. Her who is at bedside has been with her through each of these episodes.
# Nausea vomiting abdominal pain with abnormal liver chemistries with hepatocellular injury and mildly elevated total bilirubin with normal alkaline phosphatase
-- Patient is currently relatively asymptomatic
-- Review of MRI shows mild enhancement in the distal common bile duct that is mildly distended
--My hypothesis: Her mildly dilated common bile duct from prior cholecystectomy leaves her at risk for biliary sludge/small stones which then has difficulty getting out of the ampulla causing a obstructive like clinical picture
--Will start a diet and advance as tolerated, monitor labs including liver enzymes daily, if no improvement EUS early next week
Original Note:
Today's Communication / Plan
-
as per plan
Assessment / Plan
-
Pt is a 60yo with hx prior bárbara 10 years ago at [place], migraines with hx prior bouts of abdominal pain. She related first episode was in 2021. She was seen at and had recent COVID. On admission noted with increased LFT's US with mild duct
dilation and MRI with Moderate diffuse intrahepatic bile duct dilation.but questionable slight beading of the intrahepatic bile ducts and Focal narrowing of the common bile duct as it extends inferiorly within the pancreas, with suggestion of 2
focal areas of narrowing. She proceed for EUS with irregularity and inflamed CBD - with concern for covid, vs passed stone vs early neoplasm. She completed repeat MRI several months later with persistent intra and extrahepatic biliary ductal
dilatation, with slight improvement. The common hepatic and proximal intrahepatic ducts remain mildly dilated, the proximal common bile duct measures 8 mm, previously measured 12 mm.There is a persistent change in caliber similar to the previous
exam, with a more normal caliber distal common bile duct measuring 4 mm and tapering normally. A discrete lesion within the duct or extrinsic lesion is not definitively identified. No other significant interval change.The fact that there is
improvement in the dilatation of the common bile duct suggests that the findings were most likely due to cholangitis, with improving symptoms and appearance of the bile ducts compared to the previous exam. Pt was recommended to repeat MRI in 6
months to evaluate for stability but not completed. She then returned in 10/2024 with recurrent pain and similar ductal dilation and minimal LFT elevation with AST 90, ALT 60 and normal lipase. She now returns for again recurrent abdominal pain
with fever. On admission 03/07/25-> bili 2.6, AST 1007, ALT 602, and alk phos 112 with lipase 76, WBC 15,600 and fever 101.2 on admission. Labs 03/08/25-> WBC 13.2, hemoglobin 11.7, platelets 207, PT 16.9, INR 1.32, total bilirubin 2.8, direct
bilirubin 2.2, AST 347, ALT 417, alk phos 102, now afebrile. Negative blood cultures x 24 hours. Negative flu. Negative COVID. Negative hepatitis C antibody. Tested for hepatitis A and was immune in 2021.
Impression:
-recurrent bouts of abdominal pain with rise in LFT's,
-fever/leukocytosis concern for sepsis with tachycardia and mild hypotension on admission
-prior abnormal MRI with slight beading of the intrahepatic bile ducts and Focal narrowing of the common bile duct with follow up EUS completed in 2021-- covid vs passed stone vs early mass vs other
-hx prior bárbara
-dizziness
other med problems:
-migraines
-hx lung nodule
Plan:
-Continue Abx
-Trend LFTs
-Trend CBC, PT/INR
-Will review MRI with Dr. Morales, patient will likely require EUS +/- ERCP, vs Spy Glass
-Continue IVF
Subjective
Subjective
Date of Service: March 08, 2025
Patient without any further episodes of nausea, vomiting or abdominal discomfort. Tolerating ice chips. Patient has been maintained n.p.o. Continues on Zosyn. Has remained afebrile since 03/07/2025. She continues on normal saline at 125 cc an
hour. WBC currently 13.2 down from 15.6, hemoglobin 11.7, platelets 207, INR 1.32, total bilirubin 2.8 up from 2.6, direct bilirubin 0.2 up from 1.7, AST 347 down from 1007, ALT 417 down from 602, alk phos 102 down from 112, albumin 3.3. MRI of
the abdomen with without contrast performed that shows liver normal morphology. No significant difference of hepatic signal intensity between in and out phase images. Scattered subcentimeter hyperintensity, likely cysts. There is mild prominence
of the intrahepatic and extrahepatic bile ducts. The CBD measures 9.4 cm. The distal CBD is nondistended unchanged from prior. There is no evidence of filling defect. The common bile duct wall appears mildly thickened and enhancing. The
gallbladder surgically absent. The pancreas is unremarkable. Normal caliber pancreatic duct.
Objective
Data Reviewed
Laboratory Data:
Laboratory Results
03/08/25 05:37
03/07/25 10:14
Laboratory Results
PT 16.9 Sec (11.4-14.6) H 03/08/25 05:37
INR 1.32 03/08/25 05:37
Magnesium 1.6 mg/dl (1.6-2.3) 03/07/25 10:14
Total Bilirubin 2.8 mg/dl (0.2-1.3) H 03/08/25 05:37
AST 347 U/L (14-36) H 03/08/25 05:37
ALT 417 U/L (0-35) H 03/08/25 05:37
Alkaline Phosphatase 102 U/L (38-126) 03/08/25 05:37
Lipase 76 U/L (23-300) 03/07/25 10:14
Vital Signs and I&O:
Vital Signs
Temp Pulse Resp BP Pulse Ox
98.2 F 71 18 117/51 99
03/08/25 11:32 03/08/25 11:32 03/08/25 11:32 03/08/25 11:32 03/08/25 11:32
I&O
03/07/25 03/08/25 03/09/25
06:59 06:59 06:59
Intake Total 1919
Balance 1919
Physical Exam
Physical Exam
HEENT: Anicteric
Cardiology: Normal Sinus Rhythm
Pulmonary: Clear
GI: Soft, Non Distended, Non Tender and Normal Bowel Sounds
Extremities: No Edema
Neuro: Non Focal
--- NOTE | 2025-03-08 16:03 | W.PN.HOSP.TC ---
Today's Communication/Plan
-
advance diet when cleared by GI
reviewed with in room
Assessment / Plan
Assessment / Plan
#fever/right upper quadrant pain/elevated LFTS
#sepsis as evident by tachycardia, fever and elevated wbcs.
-MRCP: There is mild prominence of the proximal/mid common bile duct, slightly decreased in size from prior and without evidence of choledocholithiasis. Findings may related to prior cholecystectomy. The common bile duct wall appears mildly
thickened and enhancing which can be seen with cholangitis.
-GI consulted
-keep patient NPO
-fluids continued for hydration
-iv zosyn continued
-wbc 15.6-->13.2
AST 1007-->347
ALT 602-->417
-US of abdomen with the impression of Mildly prominent common bile duct although smaller in caliber in comparison to prior ultrasound. No findings to suggest intrahepatic biliary tract dilatation.
-blood culture sent from ER
-COVID and flu negative
discussed with GI, await decision on plans
#DVT prophylaxis
-Lovenox
#CODE status
-full code
Anticipated Discharge: > 48 hours
Subjective/Interval History
-
Date of Service: March 08, 2025
No abd pain currently
Objective Data
-
Labs:
Laboratory Results
03/08/25
05:37
WBC 13.2 H
Hgb 11.7 L
Hct 33.9 L
Plt Count 207
PT 16.9 H
INR 1.32
Total Bilirubin 2.8 H
AST 347 H
ALT 417 H
Alkaline Phosphatase 102
Vital Signs:
Vital Signs
Temp Pulse Resp BP Pulse Ox
98.2 F 74 18 124/69 100
03/08/25 15:49 03/08/25 15:49 03/08/25 15:49 03/08/25 15:49 03/08/25 15:49
I&O
03/07/25 03/08/25 03/09/25
06:59 06:59 06:59
Intake Total 1919
Balance 1919
Review of Systems
-
History Source: Patient and Family ( at bedside)
Constitutional: Denies Fever
EENT: Reports No Symptoms Reported
Respiratory: Reports No Symptoms
Cardiac: Reports No Symptoms
Abdomen/GI: Denies Abdominal Pain (resolved)
Genitourinary: Reports No Symptoms
Musculoskeletal: Reports No Symptoms
Neuro: Reports No Symptoms
Physical Exam
-
General: Well Developed, Well Nourished and No Apparent Distress
HEENT: Normocephalic, Atraumatic and Moist Mucous Membranes
Respiratory: Clear to Auscultation; Negative Wheezes, Rales or Rhonchi
Cardiac: Regular Rhythm and S1/S2
GI: Soft, Nontender and Nondistended
Musculoskeletal: No Clubbing, No Cyanosis and No Edema
Psych: Calm
[2025-03-08] MEDS: LOVENOX 40 MG SC (17:22)
[2025-03-09] VITALS (7 sets, daily range): BP systolic 130–161; BP diastolic 66–85
[2025-03-09] MEDS: ZOSYN 50 IV ×4 (00:12→17:03)
[2025-03-09] MEDS: ANTIVERT 12.5 MG PO (00:35)
[2025-03-09 05:44] LABS: Hematocrit 34.4 % (37.0-47.0); Hemoglobin 11.8 g/dL (12.0-16.0); Mean Corp Hgb Conc. 34.3 g/dL (33.0-37.0); Mean Corpuscular Hgb 30.3 pg (27.0-31.0); Mean Corpuscular Volume 88.4 fL (81.0-99.0); Mean Platelet Volume 11.2 fL (7.4-10.4); Platelet Count 201 10^3/uL (130-400); Red Blood Cell Count 3.89 10^6/uL (4.20-5.40); Red Cell Dist. Width 14.7 % (11.5-14.5)
[2025-03-09 05:59] LABS: INR 1.07; PT 14.2 Sec (11.4-14.6)
[2025-03-09 06:18] LABS: ALT (SGPT) 265 U/L (0-35); AST (SGOT) 159 U/L (14-36); Albumin 2.9 g/dl (3.5-5.0); Alkaline Phosphatase 110 U/L (38-126); Direct Bilirubin 0.8 mg/dl (0.0-0.4); Total Bilirubin 1.1 mg/dl (0.2-1.3); Total Protein 5.5 g/dl (6.3-8.2)
[2025-03-09] MEDS: PROTONIX 40 MG PO (09:08)
--- NOTE | 2025-03-09 10:28 | W.PN.GI.CBS2 ---
Today's Communication / Plan
-
-- check stool WBC, low lactose diet
-- potential discharge tomorrow with Dr. Morales follow up
- discussed with and RN
Assessment / Plan
-
Nichelle is a 60-year-old female with history of cholecystectomy over a decade ago, intermittent migraines comes in with recurrent epigastric abdominal pain that radiates into her back with hepatocellular injury, elevated total bilirubin of 2.8
with normal alkaline phosphatase and normal lipase. She has had 2 episodes in 2024 and prior to that 2 in 2021. She states symptoms start with bloating then escalate to pressure that is constant and severe in the epigastric area that radiates into
the back along with nausea menstrual having vomiting last night with chills and a measured fever this morning of 101.2. Blood cultures were sent and are negative. Initially ultrasound was done showing mildly prominent common bile duct but no
intrahepatic ductal dilatation. This was followed by MRI showing mild prominence of the proximal and mid common bile duct with thickening of the distal common bile duct measuring 9.4 cm with some mild enhancement. Gallbladder is absent, pancreas
is unremarkable with a normal pancreatic duct and a normal spleen.
She denies any family history of liver disease, no known autoimmune disease and only takes biotin outpatient. Recently told she was prediabetic.She is a non-smoker and does not drink alcohol. Her who is at bedside has been with her
through each of these episodes.
Impression:
-recurrent bouts of abdominal pain with rise in LFT's,
-fever/leukocytosis concern for sepsis with tachycardia and mild hypotension on admission
-prior abnormal MRI with slight beading of the intrahepatic bile ducts and Focal narrowing of the common bile duct with follow up EUS completed in 2021-- covid vs passed stone vs early mass vs other
-hx prior bárbara
-dizziness
other med problems:
-migraines
-hx lung nodule
# Nausea vomiting abdominal pain with abnormal liver chemistries with hepatocellular injury and mildly elevated total bilirubin with normal alkaline phosphatase
-- much improved LFTs and resolved fever and leukocytosis. no further abdominal pain
-- Patient is currently relatively asymptomatic except for bloating and some loose stools
-- Review of MRI shows mild enhancement in the distal common bile duct that is mildly distended
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
of oddi dysfunction
--Will start a diet and advance as tolerated, monitor labs including liver enzymes daily, if no improvement EUS early next week
-- if does well over the next 12 hrs would need a follow up with Dr. Morales to discuss options
#diarrhea - x4 - only one large one - not watery
-- check for WBC
-- potentially antibiotic induced
-- if becomes recurrent will check cdiff
check CMP tomorrow
Subjective
Subjective
Date of Service: March 09, 2025
Complains of some mild bloating but no significant abdominal pain. No fevers. States she did have 4 loose stools this morning first and was large followed by 3 smaller ones. No blood
Objective
Data Reviewed
Laboratory Data:
Laboratory Results
03/09/25 04:51
03/07/25 10:14
Laboratory Results
PT 14.2 Sec (11.4-14.6) 03/09/25 04:51
INR 1.07 03/09/25 04:51
Magnesium 1.6 mg/dl (1.6-2.3) 03/07/25 10:14
Total Bilirubin 1.1 mg/dl (0.2-1.3) D 03/09/25 04:51
AST 159 U/L (14-36) H 03/09/25 04:51
ALT 265 U/L (0-35) H 03/09/25 04:51
Alkaline Phosphatase 110 U/L (38-126) 03/09/25 04:51
Lipase 76 U/L (23-300) 03/07/25 10:14
Vital Signs and I&O:
Vital Signs
Temp Pulse Resp BP Pulse Ox
98.9 F 69 16 141/73 99
03/09/25 07:40 03/09/25 07:40 03/09/25 07:40 03/09/25 07:40 03/09/25 07:40
I&O
03/08/25 03/09/25 03/10/25
06:59 06:59 06:59
Intake Total 1919 900 / 900
Balance 1919 900 / 900
Physical Exam
Physical Exam
HEENT: Anicteric
Cardiology: Normal Sinus Rhythm
Pulmonary: Clear
GI: Soft, Non Distended and Non Tender
Extremities: No Edema
Neuro: Non Focal
[2025-03-09] MEDS: FLUSH (NSS) 2 FLUSH IV ×2 (12:50→17:02)
[2025-03-09] MEDS: DILAUDID 0.5 MG IV ×3 (13:38→22:44)
--- NOTE | 2025-03-09 13:41 | PTCARENOTE ---
patient had 75% of an omelette, 1 piece of toast and cranberry juice for lunch- within the hour patient reporting severe abdomen pain, throughout abdomen and radiating to back , moaning at at times. denies nausea- requesting pain medication.
dilaudid 0.5 mg IV given as ordered. plan of care on going.
--- NOTE | 2025-03-09 14:46 | W.PN.HOSP.TC ---
Today's Communication/Plan
-
follow with diet advanced
Assessment / Plan
Assessment / Plan
#fever/right upper quadrant pain/elevated LFTS
#sepsis as evident by tachycardia, fever and elevated wbcs.
-MRCP: There is mild prominence of the proximal/mid common bile duct, slightly decreased in size from prior and without evidence of choledocholithiasis. Findings may related to prior cholecystectomy. The common bile duct wall appears mildly
thickened and enhancing which can be seen with cholangitis.
-GI consulted, discussed with Dr. Harris, ?sphincter of Oddi dysfunction
-tolerating low lactose diet
-stop fluids
-iv zosyn continued
-wbc 15.6-->13.2-->7.0
AST 1007-->347-->159
ALT 602-->417-->265
-US of abdomen with the impression of Mildly prominent common bile duct although smaller in caliber in comparison to prior ultrasound. No findings to suggest intrahepatic biliary tract dilatation.
-blood culture sent from ER-NGTD
Stool neg for WBC
-COVID and flu negative
discussed with GI, if continues to do well, potential dc tomorrow to follow up with Jamie Morales post dc, consider EUS if starts to worsen
#DVT prophylaxis
-Lovenox
#CODE status
-full code
Anticipated Discharge: 24 - 48 hours
Subjective/Interval History
-
Date of Service: March 09, 2025
Feeling better, good appetite
Objective Data
-
Labs:
Laboratory Results
03/09/25
04:51
WBC 7.0
Hgb 11.8 L
Hct 34.4 L
Plt Count 201
PT 14.2
INR 1.07
Total Bilirubin 1.1 D
AST 159 H
ALT 265 H
Alkaline Phosphatase 110
Vital Signs:
Vital Signs
Temp Pulse Resp BP Pulse Ox
98.5 F 70 16 159/85 99
03/09/25 11:14 03/09/25 11:14 03/09/25 11:14 03/09/25 11:14 03/09/25 11:14
I&O
03/08/25 03/09/25 03/10/25
06:59 06:59 06:59
Intake Total 1919 900 / 900
Balance 1919 900 / 900
Review of Systems
-
History Source: Patient and Family ( at bedside)
Constitutional: Denies Fever
EENT: Reports No Symptoms Reported
Respiratory: Reports No Symptoms
Cardiac: Reports No Symptoms
Abdomen/GI: Denies Abdominal Pain (resolved)
Genitourinary: Reports No Symptoms
Musculoskeletal: Reports No Symptoms
Neuro: Reports No Symptoms
Physical Exam
-
General: Well Developed, Well Nourished and No Apparent Distress
HEENT: Normocephalic, Atraumatic and Moist Mucous Membranes
Respiratory: Clear to Auscultation; Negative Wheezes, Rales or Rhonchi
Cardiac: Regular Rhythm and S1/S2
GI: Soft, Nontender and Nondistended
Musculoskeletal: No Clubbing, No Cyanosis and No Edema
Psych: Calm
[2025-03-09] MEDS: NSS IV (15:17)
[2025-03-09] MEDS: TORADOL 15 MG IV (17:01)
[2025-03-09] MEDS: LOVENOX 40 MG SC (17:03)
--- NOTE | 2025-03-09 17:07 | PTCARENOTE ---
relief of abd pain, but returned after 3 hours post dilaudid- Dr Kern and Dr Harris aware, orders received for tordol and dilaudid- both given as ordered. plan of care on going.
[2025-03-10] VITALS (7 sets, daily range): BP systolic 145–175; BP diastolic 69–85
[2025-03-10] MEDS: ZOSYN 50 IV ×5 (00:02→23:38)
[2025-03-10 06:18] LABS: INR 1.05
[2025-03-10 07:02] LABS: ALT (SGPT) 251 U/L (0-35); AST (SGOT) 150 U/L (14-36); Albumin 3.7 g/dl (3.5-5.0); Alkaline Phosphatase 159 U/L (38-126); Blood Urea Nitrogen 6 mg/dl (7-17); Calcium 8.2 mg/dl (8.4-10.2); Carbon Dioxide 24 mmol/L (22-30); Chloride 109 mmol/L (98-107); Direct Bilirubin 1.7 mg/dl (0.0-0.4); Estimated Creatinine Clearance 60 ml/min; Glucose 87 mg/dl (70-99); Potassium 3.3 mmol/L (3.5-5.1); Sodium 144 mmol/L (135-145); Total Bilirubin 2.1 mg/dl (0.2-1.3); Total Protein 6.5 g/dl (6.3-8.2); eGFR > 60.00
[2025-03-10 07:06] LABS: Hematocrit 35.3 % (37.0-47.0); Hemoglobin 12.6 g/dL (12.0-16.0); Mean Corp Hgb Conc. 35.7 g/dL (33.0-37.0); Mean Corpuscular Hgb 30.4 pg (27.0-31.0); Mean Corpuscular Volume 85.1 fL (81.0-99.0); Mean Platelet Volume 11.8 fL (7.4-10.4); Platelet Count 230 10^3/uL (130-400); Red Blood Cell Count 4.15 10^6/uL (4.20-5.40); Red Cell Dist. Width 14.2 % (11.5-14.5); White Blood Cell Count 5.2 10^3/uL (4.8-10.8)
[2025-03-10] MEDS: PROTONIX 40 MG PO (08:12)
--- NOTE | 2025-03-10 11:06 | W.PN.GI.CBS2 ---
Today's Communication / Plan
-
NPo after midnight for EUS/ERCP scheduled for tomorrow
Primary team to replete potassium
Hold Christine hilton
Assessment / Plan
-
iNchelle is a 60-year-old female with history of cholecystectomy over a decade ago, intermittent migraines comes in with recurrent epigastric abdominal pain that radiates into her back with hepatocellular injury, elevated total bilirubin of 2.8
with normal alkaline phosphatase and normal lipase. She has had 2 episodes in 2024 and prior to that 2 in 2021. She states symptoms start with bloating then escalate to pressure that is constant and severe in the epigastric area that radiates into
the back along with nausea menstrual having vomiting last night with chills and a measured fever this morning of 101.2. Blood cultures were sent and are negative. Initially ultrasound was done showing mildly prominent common bile duct but no
intrahepatic ductal dilatation. This was followed by MRI showing mild prominence of the proximal and mid common bile duct with thickening of the distal common bile duct measuring 9.4 cm with some mild enhancement. Gallbladder is absent, pancreas
is unremarkable with a normal pancreatic duct and a normal spleen.
She denies any family history of liver disease, no known autoimmune disease and only takes biotin outpatient. Recently told she was prediabetic.She is a non-smoker and does not drink alcohol. Her who is at bedside has been with her
through each of these episodes.
Impression:
-recurrent bouts of abdominal pain with rise in LFT's,
-fever/leukocytosis concern for sepsis with tachycardia and mild hypotension on admission
-prior abnormal MRI with slight beading of the intrahepatic bile ducts and Focal narrowing of the common bile duct with follow up EUS completed in 2021-- covid vs passed stone vs early mass vs other
-hx prior bárbara
-dizziness
other med problems:
-migraines
-hx lung nodule
# Nausea vomiting abdominal pain with abnormal liver chemistries with hepatocellular injury and mildly elevated total bilirubin with normal alkaline phosphatase
--Worsening LFTs and resolved fever and leukocytosis on antibiotics. Significant pain after eating yesterday
-- Review of MRI shows mild enhancement in the distal common bile duct that is mildly distended
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
of oddi dysfunction
--Based on her significant pain post lunch yesterday and worsening of her liver enzymes with now an elevated alkaline phosphatase would proceed to EUS with ERCP
N.p.o. after midnight
#diarrhea - x4 - only one large one - not watery -none since 03/09/2025
-- WBC negative
-- potentially antibiotic induced
-- if becomes recurrent will check cdiff
Subjective
Subjective
Date of Service: March 10, 2025
No more diarrhea, had significant pain after eating an omelette yesterday requiring pain medication.
This morning no significant pain or nausea or vomiting
Objective
Data Reviewed
Laboratory Data:
Laboratory Results
03/10/25 05:24
03/10/25 05:24
Laboratory Results
PT 14.0 Sec (11.4-14.6) 03/10/25 05:24
INR 1.05 03/10/25 05:24
Magnesium 1.6 mg/dl (1.6-2.3) 03/07/25 10:14
Total Bilirubin 2.1 mg/dl (0.2-1.3) H D 03/10/25 05:24
AST 150 U/L (14-36) H 03/10/25 05:24
ALT 251 U/L (0-35) H 03/10/25 05:24
Alkaline Phosphatase 159 U/L (38-126) H 03/10/25 05:24
Lipase 76 U/L (23-300) 03/07/25 10:14
Vital Signs and I&O:
Vital Signs
Temp Pulse Resp BP Pulse Ox
98.0 F 65 16 166/84 97
03/10/25 07:40 03/10/25 07:40 03/10/25 07:40 03/10/25 07:40 03/10/25 07:40
I&O
03/09/25 03/10/25 03/11/25
06:59 06:59 06:59
Intake Total 900 / 900 820 / 820 480 / 480
Balance 900 / 900 820 / 820 480 / 480
Physical Exam
Physical Exam
HEENT: Anicteric (Mildly icteric)
GI: Soft and Tender
Extremities: No Edema
Neuro: Non Focal
[2025-03-10] MEDS: D5/0.45%NSS with KCL 20 MEQ 1000 IV (15:01)
--- NOTE | 2025-03-10 15:06 | W.PN.HOSP.TC ---
Today's Communication/Plan
-
KCl supplement
IVF
EUS/ERCP
Assessment / Plan
Assessment / Plan
#fever/right upper quadrant pain/elevated LFTS
#sepsis as evident by tachycardia, fever and elevated wbcs.
-MRCP: There is mild prominence of the proximal/mid common bile duct, slightly decreased in size from prior and without evidence of choledocholithiasis. Findings may related to prior cholecystectomy. The common bile duct wall appears mildly
thickened and enhancing which can be seen with cholangitis.
-GI consulted, discussed with Dr. Harris, ?sphincter of Oddi dysfunction
-was tolerating low lactose diet, increased pain, back on clear liquids for ERCP
-resumed fluids
-iv zosyn continued
-wbc 15.6-->13.2-->7.0-->5.2
AST 1007-->347-->159-->150
ALT 602-->417-->265-->251
-US of abdomen with the impression of Mildly prominent common bile duct although smaller in caliber in comparison to prior ultrasound. No findings to suggest intrahepatic biliary tract dilatation.
-blood culture sent from ER-NGTD
Stool neg for WBC
-COVID and flu negative
K 3.3 - will resume IVF with KCl
For EUS/ERCP hopefully tomorrow
#DVT prophylaxis
-Lovenox
#CODE status
-full code
Anticipated Discharge: 24 - 48 hours
Subjective/Interval History
-
Date of Service: March 10, 2025
Worsening of pain yesterday when tried to eat, placed back on clear liquids
Objective Data
-
Labs:
Laboratory Results
03/10/25
05:24
WBC 5.2
Hgb 12.6
Hct 35.3 L
Plt Count 230
PT 14.0
INR 1.05
Sodium 144
Potassium 3.3 L
Chloride 109 H
Carbon Dioxide 24
BUN 6 L
Creatinine 0.7
Glucose 87
Calcium 8.2 L
Total Bilirubin 2.1 H D
AST 150 H
ALT 251 H
Alkaline Phosphatase 159 H
Vital Signs:
Vital Signs
Temp Pulse Resp BP Pulse Ox
97.9 F 60 16 168/76 98
03/10/25 11:25 03/10/25 11:25 03/10/25 11:25 03/10/25 11:25 03/10/25 11:25
I&O
03/09/25 03/10/25 03/11/25
06:59 06:59 06:59
Intake Total 900 / 900 820 / 820 480 / 480
Balance 900 / 900 820 / 820 480 / 480
Review of Systems
-
History Source: Patient and Family ( at bedside)
Constitutional: Denies Fever
EENT: Reports No Symptoms Reported
Respiratory: Reports No Symptoms
Cardiac: Reports No Symptoms
Abdomen/GI: Denies Abdominal Pain (resolved)
Genitourinary: Reports No Symptoms
Musculoskeletal: Reports No Symptoms
Neuro: Reports No Symptoms
Physical Exam
-
General: Well Developed, Well Nourished and No Apparent Distress
HEENT: Normocephalic, Atraumatic and Moist Mucous Membranes
Respiratory: Clear to Auscultation; Negative Wheezes, Rales or Rhonchi
Cardiac: Regular Rhythm and S1/S2
GI: Soft, Nontender, Nondistended and Normal Bowel Sounds
Musculoskeletal: No Clubbing, No Cyanosis and No Edema
Psych: Calm
[2025-03-10] MEDS: MOTRIN 400 MG PO (20:18)
[2025-03-10] MEDS: ANTIVERT 12.5 MG PO (20:28)
[2025-03-11 03:22] VITALS: BP 168/85
[2025-03-11] MEDS: D5/0.45%NSS with KCL 20 MEQ 1000 IV ×2 (03:40→13:16)
[2025-03-11] MEDS: ZOSYN 50 IV ×4 (05:53→23:19)
[2025-03-11 06:38] LABS: INR 1.02; PT 13.7 Sec (11.4-14.6)
[2025-03-11 06:48] LABS: ALT (SGPT) 231 U/L (0-35); AST (SGOT) 147 U/L (14-36); Albumin 3.6 g/dl (3.5-5.0); Alkaline Phosphatase 147 U/L (38-126); Blood Urea Nitrogen 5 mg/dl (7-17); Calcium 8.2 mg/dl (8.4-10.2); Carbon Dioxide 26 mmol/L (22-30); Chloride 107 mmol/L (98-107); Direct Bilirubin 0.7 mg/dl (0.0-0.4); Estimated Creatinine Clearance 60 ml/min; Glucose 127 mg/dl (70-99); Potassium 3.3 mmol/L (3.5-5.1); Sodium 143 mmol/L (135-145); Total Bilirubin 1.2 mg/dl (0.2-1.3); Total Protein 6.4 g/dl (6.3-8.2); eGFR > 60.00
[2025-03-11 07:13] LABS: Hematocrit 35.3 % (37.0-47.0); Hemoglobin 12.5 g/dL (12.0-16.0); Mean Corp Hgb Conc. 35.4 g/dL (33.0-37.0); Mean Corpuscular Volume 84.7 fL (81.0-99.0); Mean Platelet Volume 11.4 fL (7.4-10.4); Platelet Count 251 10^3/uL (130-400); Red Blood Cell Count 4.17 10^6/uL (4.20-5.40); Red Cell Dist. Width 13.8 % (11.5-14.5); White Blood Cell Count 5.1 10^3/uL (4.8-10.8)
[2025-03-11 08:10] VITALS: BP 155/74
[2025-03-11] MEDS: PROTONIX 40 MG PO (09:00)
[2025-03-11] MEDS: KCL 270 MEQ IV (09:00)
[2025-03-11 11:43] VITALS: BP 156/71
--- NOTE | 2025-03-11 12:27 | W.PN.HOSP.TC ---
Today's Communication/Plan
-
Monitor vital signs see plan
Pain control
Plan for EGD/EUS today
Replete potassium
Assessment / Plan
Assessment / Plan
#fever/right upper quadrant pain/elevated LFTS
#sepsis as evident by tachycardia, fever and elevated wbcs.
-MRCP: There is mild prominence of the proximal/mid common bile duct, slightly decreased in size from prior and without evidence of choledocholithiasis. Findings may related to prior cholecystectomy. The common bile duct wall appears mildly
thickened and enhancing which can be seen with cholangitis.
-GI consulted, discussed with Dr. Harris, ?sphincter of Oddi dysfunction
-was tolerating low lactose diet, increased pain, now n.p.o. for EUS/ERCP
-iv zosyn continued
Monitor leukocytosis, LFTs
-US of abdomen with the impression of Mildly prominent common bile duct although smaller in caliber in comparison to prior ultrasound. No findings to suggest intrahepatic biliary tract dilatation.
-blood culture sent from ER-NGTD
Stool neg for WBC
-COVID and flu negative
Hypokalemia
Replete
Elevated LFTs
Monitor
Prior history of cholecystectomy
GERD
#DVT prophylaxis
-Lovenox
#CODE status
-full code
General: Well Developed, Well Nourished and No Apparent Distress
HEENT: Normocephalic, Atraumatic and Moist Mucous Membranes
Respiratory: Clear to Auscultation; Negative Wheezes, Rales or Rhonchi
Cardiac: Regular Rhythm and S1/S2
GI: Soft, Nontender, Nondistended and Normal Bowel Sounds
Musculoskeletal: No Clubbing, No Cyanosis and No Edema
Psych: Calm
Anticipated Discharge: Within 24 hours
Subjective/Interval History
-
Date of Service: March 11, 2025
Still has some discomfort
Objective Data
-
Labs:
Laboratory Results
03/11/25
06:02
WBC 5.1
Hgb 12.5
Hct 35.3 L
Plt Count 251
PT 13.7
INR 1.02
Sodium 143
Potassium 3.3 L
Chloride 107
Carbon Dioxide 26
BUN 5 L
Creatinine 0.7
Glucose 127 H
Calcium 8.2 L
Total Bilirubin 1.2
AST 147 H
ALT 231 H
Alkaline Phosphatase 147 H
Vital Signs:
Vital Signs
Temp Pulse Resp BP Pulse Ox
99 F 62 18 156/71 97
03/11/25 11:43 03/11/25 11:43 03/11/25 11:43 03/11/25 11:43 03/11/25 11:43
I&O
03/10/25 03/11/25 03/12/25
06:59 06:59 06:59
Intake Total 820 / 820 960 / 960
Balance 820 / 820 960 / 960
[2025-03-11 16:18] VITALS: BP 159/78
[2025-03-11 19:43] VITALS: BP 157/72
[2025-03-11 23:20] VITALS: BP 149/78
[2025-03-12] VITALS (12 sets, daily range): BP systolic 131–187; BP diastolic 53–93; BMI 21.5
[2025-03-12] MEDS: D5/0.45%NSS with KCL 20 MEQ 1000 IV ×2 (01:25→18:07)
[2025-03-12] MEDS: ZOSYN 50 IV ×3 (05:35→18:06)
[2025-03-12 06:49] LABS: % Basophils 0.5 % (0-2); % Eosinophils 5.1 % (0-6); % Immature Granulocytes 0.9 % (0-0.5); % Lymphocytes 31.3 % (20.5-51.1); % Monocytes 6.6 % (1.7-9.3); % Neutrophils 55.6 % (42.2-75.2); Absolute Eosinophils 0.3 10^3/uL (0-0.7); Absolute Immature Granulocytes 0.1 10^3/uL (0-0.05); Absolute Lymphocytes 1.8 10^3/uL (1.2-3.4); Absolute Monocytes 0.4 10^3/uL (0.1-0.6); Absolute Neutrophils 3.3 10^3/uL (1.4-6.5); Hematocrit 37.1 % (37.0-47.0); Hemoglobin 13.3 g/dL (12.0-16.0); Mean Corp Hgb Conc. 35.8 g/dL (33.0-37.0); Mean Corpuscular Hgb 30.4 pg (27.0-31.0); Mean Corpuscular Volume 84.7 fL (81.0-99.0); Mean Platelet Volume 11.3 fL (7.4-10.4); Nucleated Red Blood Cells % 0 %; Platelet Count 253 10^3/uL (130-400); Red Blood Cell Count 4.38 10^6/uL (4.20-5.40); Red Cell Dist. Width 13.8 % (11.5-14.5); White Blood Cell Count 5.9 10^3/uL (4.8-10.8)
[2025-03-12 07:17] LABS: ALT (SGPT) 286 U/L (0-35); AST (SGOT) 286 U/L (14-36); Albumin 3.5 g/dl (3.5-5.0); Alkaline Phosphatase 139 U/L (38-126); Blood Urea Nitrogen 4 mg/dl (7-17); Calcium 8.6 mg/dl (8.4-10.2); Carbon Dioxide 26 mmol/L (22-30); Chloride 110 mmol/L (98-107); Estimated Creatinine Clearance 60 ml/min; Glucose 130 mg/dl (70-99); Potassium 3.7 mmol/L (3.5-5.1); Sodium 144 mmol/L (135-145); Total Bilirubin 1.1 mg/dl (0.2-1.3); Total Protein 6.5 g/dl (6.3-8.2); eGFR > 60.00
[2025-03-12] MEDS: PROTONIX 40 MG PO (08:24)
--- NOTE | 2025-03-12 12:48 | W.PN.HOSP.TC ---
Today's Communication/Plan
-
Monitor vital signs see plan
EUS/ERCP today
GI following
Assessment / Plan
Assessment / Plan
#fever/right upper quadrant pain/elevated LFTS
#sepsis as evident by tachycardia, fever and elevated wbcs.
-MRCP: There is mild prominence of the proximal/mid common bile duct, slightly decreased in size from prior and without evidence of choledocholithiasis. Findings may related to prior cholecystectomy. The common bile duct wall appears mildly
thickened and enhancing which can be seen with cholangitis.
-GI consulted, discussed with Dr. Harris, ?sphincter of Oddi dysfunction
-was tolerating low lactose diet, increased pain, now n.p.o. for EUS/ERCP
-iv zosyn continued
Monitor leukocytosis, LFTs
-US of abdomen with the impression of Mildly prominent common bile duct although smaller in caliber in comparison to prior ultrasound. No findings to suggest intrahepatic biliary tract dilatation.
-blood culture sent from ER-NGTD
Stool neg for WBC
-COVID and flu negative
Hypokalemia
Replete
Elevated LFTs
Monitor
Prior history of cholecystectomy
GERD
#DVT prophylaxis
-Lovenox
#CODE status
-full code
General: Well Developed, Well Nourished and No Apparent Distress
HEENT: Normocephalic, Atraumatic and Moist Mucous Membranes
Respiratory: Clear to Auscultation; Negative Wheezes, Rales or Rhonchi
Cardiac: Regular Rhythm and S1/S2
GI: Soft, Nontender, Nondistended and Normal Bowel Sounds
Musculoskeletal: No Clubbing, No Cyanosis and No Edema
Psych: Calm
Anticipated Discharge: Within 24 hours
Subjective/Interval History
-
Date of Service: March 12, 2025
denies nausea
Objective Data
-
Labs:
Laboratory Results
03/12/25
06:15
WBC 5.9
Hgb 13.3
Hct 37.1
Plt Count 253
Sodium 144
Potassium 3.7
Chloride 110 H
Carbon Dioxide 26
BUN 4 L
Creatinine 0.7
Glucose 130 H
Calcium 8.6
Total Bilirubin 1.1
AST 286 H
ALT 286 H
Alkaline Phosphatase 139 H
Vital Signs:
Vital Signs
Temp Pulse Resp BP Pulse Ox
98.5 F 57 18 152/78 98
03/12/25 12:05 03/12/25 12:05 03/12/25 12:05 03/12/25 12:05 03/12/25 12:05
I&O
03/11/25 03/12/25 03/13/25
06:59 06:59 06:59
Intake Total 960 / 960 480 / 480
Balance 960 / 960 480 / 480
--- NOTE | 2025-03-12 13:19 | CM ---
Patient progressing well, appears to functionally be at baseline.
Plan: Case management will continue to follow and assist with discharge planning. Home no needs.
[2025-03-12] MEDS: APRESOLINE 5 MG IV (18:57)
[2025-03-13] MEDS: ZOSYN 50 IV ×2 (00:44→05:49)
[2025-03-13 03:38] VITALS: BP 130/69
[2025-03-13 06:34] LABS: % Basophils 0.1 % (0-2); % Immature Granulocytes 0.8 % (0-0.5); % Lymphocytes 20.2 % (20.5-51.1); % Monocytes 4.4 % (1.7-9.3); % Neutrophils 74.5 % (42.2-75.2); Absolute Immature Granulocytes 0.1 10^3/uL (0-0.05); Absolute Lymphocytes 1.6 10^3/uL (1.2-3.4); Absolute Monocytes 0.3 10^3/uL (0.1-0.6); Absolute Neutrophils 5.8 10^3/uL (1.4-6.5); Hematocrit 39.4 % (37.0-47.0); Mean Corp Hgb Conc. 35.5 g/dL (33.0-37.0); Mean Corpuscular Hgb 30.3 pg (27.0-31.0); Mean Corpuscular Volume 85.3 fL (81.0-99.0); Mean Platelet Volume 11.4 fL (7.4-10.4); Nucleated Red Blood Cells % 0 %; Platelet Count 270 10^3/uL (130-400); Red Blood Cell Count 4.62 10^6/uL (4.20-5.40); Red Cell Dist. Width 14.2 % (11.5-14.5); White Blood Cell Count 7.8 10^3/uL (4.8-10.8)
[2025-03-13 07:06] LABS: ALT (SGPT) 310 U/L (0-35); AST (SGOT) 233 U/L (14-36); Albumin 3.7 g/dl (3.5-5.0); Alkaline Phosphatase 152 U/L (38-126); Blood Urea Nitrogen 8 mg/dl (7-17); Calcium 8.8 mg/dl (8.4-10.2); Carbon Dioxide 24 mmol/L (22-30); Chloride 111 mmol/L (98-107); Estimated Creatinine Clearance 60 ml/min; Glucose 125 mg/dl (70-99); Potassium 4.2 mmol/L (3.5-5.1); Sodium 144 mmol/L (135-145); Total Bilirubin 1.1 mg/dl (0.2-1.3); eGFR > 60.00
[2025-03-13 07:30] VITALS: BP 146/68
[2025-03-13] MEDS: PROTONIX 40 MG PO (09:22)
[2025-03-13 11:10] VITALS: BP 154/75
--- NOTE | 2025-03-13 12:13 | W.PN.GI.CBS2 ---
Today's Communication / Plan
-
follow up with as outpatient
Assessment / Plan
-
Nichelle is a 60-year-old female with history of cholecystectomy over a decade ago, intermittent migraines comes in with recurrent epigastric abdominal pain that radiates into her back with hepatocellular injury, elevated total bilirubin of 2.8
with normal alkaline phosphatase and normal lipase. She has had 2 episodes in 2024 and prior to that 2 in 2021. She states symptoms start with bloating then escalate to pressure that is constant and severe in the epigastric area that radiates into
the back along with nausea menstrual having vomiting last night with chills and a measured fever this morning of 101.2. Blood cultures were sent and are negative. Initially ultrasound was done showing mildly prominent common bile duct but no
intrahepatic ductal dilatation. This was followed by MRI showing mild prominence of the proximal and mid common bile duct with thickening of the distal common bile duct measuring 9.4 cm with some mild enhancement. Gallbladder is absent, pancreas
is unremarkable with a normal pancreatic duct and a normal spleen.
She denies any family history of liver disease, no known autoimmune disease and only takes biotin outpatient. Recently told she was prediabetic.She is a non-smoker and does not drink alcohol. Her who is at bedside has been with her
through each of these episodes.
Impression:
-recurrent bouts of abdominal pain with rise in LFT's,
-fever/leukocytosis concern for sepsis with tachycardia and mild hypotension on admission
-prior abnormal MRI with slight beading of the intrahepatic bile ducts and Focal narrowing of the common bile duct with follow up EUS completed in 2021-- covid vs passed stone vs early mass vs other
-hx prior bárbara
-dizziness
other med problems:
-migraines
-hx lung nodule
# Nausea vomiting abdominal pain with abnormal liver chemistries with hepatocellular injury and mildly elevated total bilirubin with normal alkaline phosphatase
--Worsening LFTs and resolved fever and leukocytosis on antibiotics. Significant pain after eating yesterday
-- MRI shows mild enhancement in the distal common bile duct that is mildly distended
ERCP with [facility] 03/12 2025
Impression: - The major papilla appeared to be flat.
- A single moderate biliary stricture was found in the
lower third of the main bile duct. The stricture was
indeterminate.
- A single moderate biliary stricture was found in the
lower third of the main bile duct. The stricture was
benign appearing.
- The upper third of the main bile duct, middle third
of the main bile duct, left main hepatic duct, right
main hepatic duct and common hepatic duct were
moderately dilated.
- The upper third of the main bile duct and middle
third of the main bile duct were moderately dilated.
- An irregularity was found in the left main hepatic
duct, right intrahepatic branches and right main
hepatic duct characterized by beading appearance,
suggestive of possible PSC.
- A biliary sphincterotomy was performed.
- Biopsy was performed in the lower third of the main
duct.
- The lower third of the main bile duct was
successfully dilated.
- One plastic stent was placed into the common bile
duct.
plan
Patient clinically doing well this a.m. Tolerating liquid diet.
Okay to advance diet to low-fat diet
Follow-up biliary duct biopsy path with Dr. Morales
Follow-up with Dr. Morales in the office in 4 weeks . will recommend outpatient discussion for colonoscopy
No further recommendation at this point. Will sign off
Total Time Spent with Patient (in minutes): 35
Subjective
Subjective
Date of Service: March 13, 2025
Denies any abdominal pain/nausea/vomiting
Objective
Data Reviewed
Laboratory Data:
Laboratory Results
03/13/25 05:55
03/13/25 05:55
Laboratory Results
PT 13.7 Sec (11.4-14.6) 03/11/25 06:02
INR 1.02 03/11/25 06:02
Magnesium 1.6 mg/dl (1.6-2.3) 03/07/25 10:14
Total Bilirubin 1.1 mg/dl (0.2-1.3) 03/13/25 05:55
AST 233 U/L (14-36) H 03/13/25 05:55
ALT 310 U/L (0-35) H 03/13/25 05:55
Alkaline Phosphatase 152 U/L (38-126) H 03/13/25 05:55
Lipase 76 U/L (23-300) 03/07/25 10:14
Vital Signs and I&O:
Vital Signs
Temp Pulse Resp BP Pulse Ox
98.1 F 57 16 146/68 99
03/13/25 07:30 03/13/25 07:30 03/13/25 07:30 03/13/25 07:30 03/13/25 07:30
I&O
03/12/25 03/13/25 03/14/25
06:59 06:59 06:59
Intake Total 480 / 480 530 / 530
Balance 480 / 480 530 / 530
Physical Exam
Physical Exam
GI: Soft, Non Distended and Non Tender
--- NOTE | 2025-03-13 12:26 | W.PN.HOSP.TC ---
Addendum entered and electronically signed by Ammon Vigil MD 03/13/25 14:11:
Discussed with GI, no antibiotics on discharge
Addendum entered and electronically signed by Ammon Vigil MD 03/13/25 13:17:
Time of discharge 38 minutes
Original Note:
Today's Communication/Plan
-
Monitor vitals
See plan
Discussed with GI, discharge today if tolerates diet
Patient will follow-up with GI outpatient
Assessment / Plan
Assessment / Plan
#fever/right upper quadrant pain/elevated LFTS
#sepsis as evident by tachycardia, fever and elevated wbcs.
-MRCP: There is mild prominence of the proximal/mid common bile duct, slightly decreased in size from prior and without evidence of choledocholithiasis. Findings may related to prior cholecystectomy. The common bile duct wall appears mildly
thickened and enhancing which can be seen with cholangitis.
-GI consulted, discussed with Dr. Harris, ?sphincter of Oddi dysfunction
-was tolerating low lactose diet, increased pain, s/p EUS/ERCP. moderate biliary stricture in the lower third of the main bile duct status post 1 plastic stent into the CBD. Irregularity was found in the left main hepatic duct concerning for
possible PSC. Patient will follow-up with GI outpatient. If tolerates diet today then discharge.
-iv zosyn continued
Monitor leukocytosis, LFTs
-US of abdomen with the impression of Mildly prominent common bile duct although smaller in caliber in comparison to prior ultrasound. No findings to suggest intrahepatic biliary tract dilatation.
-blood culture sent from [facility]
Stool neg for WBC
-COVID and flu negative
Hypokalemia
Replete
Elevated LFTs
Monitor
Prior history of cholecystectomy
GERD
#DVT prophylaxis
-Lovenox
#CODE status
-full code
General: Well Developed, Well Nourished and No Apparent Distress
HEENT: Normocephalic, Atraumatic and Moist Mucous Membranes
Respiratory: Clear to Auscultation; Negative Wheezes, Rales or Rhonchi
Cardiac: Regular Rhythm and S1/S2
GI: Soft, Nontender, Nondistended and Normal Bowel Sounds
Musculoskeletal: No Clubbing, No Cyanosis and No Edema
Psych: Calm
Anticipated Discharge: Today
Subjective/Interval History
-
Date of Service: March 13, 2025
denies nausea
Objective Data
-
Labs:
Laboratory Results
03/13/25
05:55
WBC 7.8
Hgb 14.0
Hct 39.4
Plt Count 270
Sodium 144
Potassium 4.2
Chloride 111 H
Carbon Dioxide 24
BUN 8
Creatinine 0.7
Glucose 125 H
Calcium 8.8
Total Bilirubin 1.1
AST 233 H
ALT 310 H
Alkaline Phosphatase 152 H
Vital Signs:
Vital Signs
Temp Pulse Resp BP Pulse Ox
98.7 F 67 16 154/75 98
03/13/25 11:10 03/13/25 11:10 03/13/25 11:10 03/13/25 11:10 03/13/25 11:10
I&O
03/12/25 03/13/25 03/14/25
06:59 06:59 06:59
Intake Total 480 / 480 530 / 530
Balance 480 / 480 530 / 530
[2025-03-13] MEDS: ZOSYN IV (12:51)
--- NOTE | 2025-03-13 13:19 | W.DCSUMMARY ---
Discharge Summary
Discharge Data
Date of Admission: 03/07/25
Date of Discharge: 03/13/25
-
Pending Results: Yes
Hospital Course
60-year-old female with past medical history of GERD cholecystectomy came to the hospital with elevated LFTs and right upper quadrant pain. Patient initially had SIRS criteria. MRCP was done which showed mild prominence of the proximal/mid: Bile
duct with possibility of cholangitis. Patient was seen by gastroenterology throughout hospitalization. Patient underwent EUS/ERCP which showed moderate biliary stricture in the lower third of the main bile duct. 1 plastic stent was placed into
the CBD. There was also irregularity in the left main hepatic duct concerning for possible PSC. GI took biopsy which were still pending prior to discharge for which patient instructed to follow-up with them outpatient. Patient LFTs were improving
and patient instructed to get repeat CMP outpatient. Since patient after the EUS/ERCP was able to tolerate low-fat diet, she was then discharged home with instructions to follow-up with all her physicians outpatient.
Discharge Plan
-
Patient Disposition: Home (Routine Discharge)
Discharge Diagnosis/Procedures: Nausea, vomiting abdominal pain likely secondary to focal narrowing of common bile duct
Elevated LFTs
Hypokalemia
Diet: Low Fat
Activity: As tolerated
Bathing Restrictions: None
Blood Work: CMP next week with primary care provider
Referrals:
Eulalia Benjamin MD [Family Provider] - in less than 1 week
Jamie Morales MD [Active] - (return to GI office in 4 weeks )
Prescriptions:
Continued
meclizine 12.5 MG tablet
12.5 mg PO DAILYPRN PRN (Reason: dizziness)
Flovent Hfa
2 puff inhalation R BIDPRN PRN (Reason: sob)
Patient Comments:
no ecw no pharmacy records
pantoprazole 40 MG tablet,delayed release (DR/EC)
40 mg PO DAILY
Held
acetaminophen [Tylenol] 325 mg Tablet
650 mg PO Q6HPRN PRN (Reason: mild pain)
Hold Instructions: Until instructed to take by GI or PCP
Discharge Orders:
Discharge Patient (As Directed); Ordered 03/13/25
Ordered By: Ammon Vigil
Discharge Date and Time
Discharge Date/Time: 03/13/25 14:33
Print Language: OCCITAN
== END 2025-03-13 14:33 | disposition home or self-care (01) | DRG 872 ==
LOC: 4 EAST ACU 12:35
PROVIDERS: Internal Medicine Gastroenterology; Nurse Practitioner; Nurse Practitioner Adult Health; Radiology Diagnostic Radiology; Registered Nurse; ADMITTING PHYSICIAN Hospitalist; ATTENDING PHYSICIAN Internal Medicine; CONSULT PHYSICIAN Internal Medicine; EMERGENCY PHYSICIAN Emergency Medicine; FAMILY PHYSICIAN Emergency Medicine
PROC: BF111ZZ Fluoroscopy of Biliary and Pancreatic Ducts using Low Osmolar Contrast (ICD-10-PCS; 2025-03-12)
PROC: 0F798DZ Dilation of Common Bile Duct with Intraluminal Device, Via Natural or Artificial Opening Endoscopic (ICD-10-PCS; 2025-03-12)
PROC: 0FB98ZX Excision of Common Bile Duct, Via Natural or Artificial Opening Endoscopic, Diagnostic (ICD-10-PCS; 2025-03-12)
DX: A41.9 Sepsis, unspecified organism (principal); K91.86 Retained cholelithiasis following cholecystectomy; K21.9 Gastro-esophageal reflux disease without esophagitis; K76.89 Other specified diseases of liver; G43.909 Migraine, unspecified, not intractable, without status migrainosus; R91.1 Solitary pulmonary nodule; E87.6 Hypokalemia; Y83.8 Other surgical procedures as the cause of abnormal reaction of the patient, or of later complication, without mention of misadventure at the time of the procedure; Y92.9 Unspecified place or not applicable; Z11.52 Encounter for screening for COVID-19; Z90.49 Acquired absence of other specified parts of digestive tract; Z79.51 Long term (current) use of inhaled steroids
CPT/HCPCS: 88305; 74183; 74330; 76000; 76700; 80053; 80076; 81003; 81015; 82248; 83605; 83690; 83735; 85025; 85027; 85610; 86803; 87040; 87502; 87811; 89055; 96361; 96365; 96375; 99285; A9575; C1726; C1769; C2625

== ENCOUNTER → 2025-03-19 16:57 | Outpatient (REF) | payer OTHER, SELFPAY | LOC: WDC 16:57 | PROVIDERS: ATTENDING PHYSICIAN Emergency Medicine | DX: Z12.31 Encounter for screening mammogram for malignant neoplasm of breast (principal) | CPT/HCPCS: 77063; 77067 ==

== ENCOUNTER → 2025-03-27 06:21 | Outpatient (REF) | payer OTHER, SELFPAY ==
[2025-03-27 08:06] LABS: ALT (SGPT) 68 U/L (0-35); AST (SGOT) 51 U/L (14-36); Albumin 4.5 g/dl (3.5-5.0); Alkaline Phosphatase 99 U/L (38-126); Blood Urea Nitrogen 10 mg/dl (7-17); Calcium 9.4 mg/dl (8.4-10.2); Carbon Dioxide 29 mmol/L (22-30); Chloride 109 mmol/L (98-107); Glucose 104 mg/dl (70-99); Sodium 144 mmol/L (135-145); Total Bilirubin 0.6 mg/dl (0.2-1.3); Total Protein 7.8 g/dl (6.3-8.2); eGFR > 60.00
== END ==
LOC: REG 06:21
PROVIDERS: ATTENDING PHYSICIAN Emergency Medicine
DX: E87.6 Hypokalemia (principal)
CPT/HCPCS: 36415; 80053

== ENCOUNTER 2025-06-07 06:21 | Day surgery (SDC) | payer OTHER, SELFPAY ==
[2025-06-07 09:00] VITALS: BMI 24.0
[2025-06-07 09:01] VITALS: BP 155/67
[2025-06-07 09:04] LABS: Glucose - Point of Care 94 mg/dl (70-99)
[2025-06-07 09:08] VITALS: BMI 24.0
[2025-06-07 11:07] VITALS: BP 141/80
[2025-06-07 11:15] VITALS: BP 146/78
[2025-06-07 11:30] VITALS: BP 149/82
== END 2025-06-07 12:00 | disposition home or self-care (01) ==
LOC: SDS 06:21
PROVIDERS: ATTENDING PHYSICIAN Internal Medicine Gastroenterology
DX: T85.590A Other mechanical complication of bile duct prosthesis, initial encounter (principal); Y82.8 Other medical devices associated with adverse incidents; K80.51 Calculus of bile duct without cholangitis or cholecystitis with obstruction; K83.8 Other specified diseases of biliary tract; Z46.59 Encounter for fitting and adjustment of other gastrointestinal appliance and device
CPT/HCPCS: 43264; 43275; 74330; 76000; 82962; C1769

== ENCOUNTER → 2025-06-18 06:30 | Outpatient (REF) | payer OTHER, SELFPAY ==
[2025-06-18 08:19] LABS: ALT (SGPT) 21 U/L (0-35); AST (SGOT) 23 U/L (14-36); Albumin 4.4 g/dl (3.5-5.0); Alkaline Phosphatase 65 U/L (38-126); Total Protein 7.5 g/dl (6.3-8.2)
== END ==
LOC: REG 06:30
PROVIDERS: ATTENDING PHYSICIAN Internal Medicine Gastroenterology; FAMILY PHYSICIAN Emergency Medicine
DX: R79.89 Other specified abnormal findings of blood chemistry (principal)
CPT/HCPCS: 36415; 80076

== ENCOUNTER → 2025-07-15 06:36 | Outpatient (REF) | payer OTHER, SELFPAY | LOC: REG 06:36 | PROVIDERS: ATTENDING PHYSICIAN Internal Medicine Gastroenterology; FAMILY PHYSICIAN Family Medicine | DX: R79.89 Other specified abnormal findings of blood chemistry (principal) | CPT/HCPCS: 36415; 86753 ==

== ENCOUNTER → 2025-07-25 06:43 | Outpatient (REF) | payer OTHER, SELFPAY ==
[2025-07-25 07:50] LABS: Urine Character Clear (Clear)
[2025-07-25 07:57] LABS: Hematocrit 40.0 % (37.0-47.0); Hemoglobin 13.2 g/dL (12.0-16.0); Mean Corp Hgb Conc. 33.0 g/dL (33.0-37.0); Mean Corpuscular Volume 90.1 fL (81.0-99.0); Nucleated Red Blood Cells % 0 %; Platelet Count 281 10^3/uL (130-400); Red Cell Dist. Width 13.2 % (11.5-14.5)
[2025-07-25 08:33] LABS: ALT (SGPT) 24 U/L (0-35); AST (SGOT) 28 U/L (14-36); Albumin 4.5 g/dl (3.5-5.0); Alkaline Phosphatase 61 U/L (38-126); Blood Urea Nitrogen 16 mg/dl (7-17); Calcium 9.3 mg/dl (8.4-10.2); Carbon Dioxide 28 mmol/L (22-30); Chloride 105 mmol/L (98-107); GGTP 27 U/L (12-43); Glucose 95 mg/dl (70-99); HDL Cholesterol 106 mg/dl; LDL Cholesterol, Calculated 123 mg/dl; Potassium 4.7 mmol/L (3.5-5.1); Sodium 140 mmol/L (135-145); Total Protein 7.9 g/dl (6.3-8.2); Very Low Density Lipoprotein 15 mg/dl (0-30); eGFR > 60.00
== END ==
LOC: REG 06:43
PROVIDERS: ATTENDING PHYSICIAN Family Medicine
DX: Z13.29 Encounter for screening for other suspected endocrine disorder (principal); Z13.1 Encounter for screening for diabetes mellitus; K83.1 Obstruction of bile duct
CPT/HCPCS: 36415; 80053; 80061; 81003; 82977; 84443; 85025

== ENCOUNTER 2025-10-11 06:35 | Day surgery (SDC) | payer OTHER, SELFPAY | END 2025-10-11 10:31 | disposition home or self-care (01) | LOC: GI 06:35 | PROVIDERS: ATTENDING PHYSICIAN Internal Medicine | DX: Z12.11 Encounter for screening for malignant neoplasm of colon (principal); K64.9 Unspecified hemorrhoids; K63.89 Other specified diseases of intestine; D12.3 Benign neoplasm of transverse colon | CPT/HCPCS: 45385; 45380; 88305 ==